=== PATIENT | female | born 1935 | race Caucasian/White ===

== ENCOUNTER → 2017-09-10 14:48 | Outpatient (POV) | payer MEDICARE, SELFPAY | PROVIDERS: Visit Provider Nurse Practitioner Acute Care | DX: Z00.00 Encounter for general adult medical examination without abnormal findings (principal) ==

== ENCOUNTER → 2017-10-22 08:27 | Outpatient (POV) | payer MEDICARE, SELFPAY | PROVIDERS: Visit Provider Nurse Practitioner Acute Care | DX: Z00.00 Encounter for general adult medical examination without abnormal findings (principal) ==

== ENCOUNTER → 2018-01-21 08:47 | Outpatient (POV) | payer MEDICARE, SELFPAY | PROVIDERS: Visit Provider Nurse Practitioner Acute Care | DX: Z00.00 Encounter for general adult medical examination without abnormal findings (principal) ==

== ENCOUNTER → 2019-02-04 13:35 | Outpatient (CLI) | payer MEDICARE, SELFPAY ==
--- NOTE | 2019-02-04 13:42 | MM_ITS ---
MM Dig mamm BI DX w/CAD US breast LT complete Ordering Physician: Los Trevino MD Patient Age: 83 years: Female HISTORY: ITS.REASON: MASSnoted on recent CT No hormones. Noncontributory family history COMPARISON:. Baseline breast study no previous mammogram but there 01/16/2019 CT abdomen which demonstrated mass left breast TECHNIQUE: MLO and cc view both breast along with additional spot CC & MLO view left breast. ...... DIAGNOSTIC MAMMOGRAM WITH SPOT VIEWS LEFT BREAST LEFT BREAST: Spiculated mass density at deep axillary tail left breast. This measures 16 mm times nearly 19 mm height on spot views.. Its mammographic appearance compatible with carcinoma until proven otherwise Subsequent ultrasound appearance compatible with carcinoma until proven otherwise . Also with this patient returns suggesting performing spot views of area labeled Y & Z is seen on cc view. And highlighted by CAD.. I suspect these are summation shadows as it becomes less evident on the MLO view; but would benefit from further evaluation (particularly since area was questioned area 6:00 on subsequent ultrasound as discussed below) . RIGHT BREAST.: Generalized fatty replacement. Vascular calcifications. No areas of significant concern . No areas prominent concern but there are some asymmetric densities which would benefit six-month follow-up when patient returns for the 6 month left mammogram follow-up. . ....ULTRASOUND LEFT BREAST... Including axillary survey Imaging entire breast was performed including axillary survey. . There is a spiculated hypoechoic mass 1:00 outer breast which correlates with the mass seen on mammography. Compatible with carcinoma until proven otherwise. This mass measures up to 19 mm transverse measurement x 16 mm dimension height on ultrasound.. It has slightly lobulated margins in some images with height, greater than width. Recommend Ultrasound-Guided Biopsy of this area labeled BX The product development technician question a second small vague area at 6:00 near nipple. This measures nearly 10 mm X 8.3 mm by ultrasound. Its ultrasound appearance suggest intramammary node but but we will review this again with ultrasound when the patient returns. . 3 Axillary nodes are identified deep axilla but not characterized on today's scan.. These imaged 3 deep axillary nodes imaged appear to be more likely benign; but suggest these be rescanned when the patient returns. -------IMPRESSION: LEFT BREAST: 1. Left breast lesion at 1:00 highly suspect for carcinoma ... Irregular spiculated mass density axillary tail left breast, on mammography & ultrasound. ... Measures up to 19 x 16 mm*Highly suspect for carcinoma..-Recommend Ultrasound Guided biopsy 2. Subtle Vague areas of slight focal density elsewhere at left breast labeled Y & Z most likely summation shadows but benefit from spot views when the patient returns.. (To be performed Prior to biopsy) ; Particularly since ultrasound question vague nodule at 6:00 3.. Ultrasound imaging right axilla demonstrates 3 most more likely benign axillary lymph nodes, but suggest these be again rescanned when the patient returns... (To be performed prior to the ultrasound biopsy) RIGHT BREAST: . No areas of significant significant concern . Mild areas of mild asymmetry. I would suggest a including 6 month follow-up right breast along with left subsequent to the to the patient's likely left lumpectomy surgery BI-RADS Category: 5 Highly Suggestive of Malignancy RECOMMENDED FOLLOW-UP: BIO - BIOPSY RECOMMENDED Ultrasound-guided biopsy suspicious mass LEFT breast labeled X. 1:00 position Prior to biopsy additional imaging warranted: ... Repeat
== END ==
PROVIDERS: PCP Family Medicine; Visit Provider Family Medicine
DX: R22.9 Localized swelling, mass and lump, unspecified (principal); D24.2 Benign neoplasm of left breast
CPT/HCPCS: 76641; 77066

== ENCOUNTER → 2019-02-18 09:27 | Outpatient (CLI) | payer MEDICARE, SELFPAY ==
--- NOTE | 2019-02-18 09:45 | US_ITS ---
US mammotome bx LT, MM clip placement LT, US breast LT complete INDICATION: Abnormal mammogram and abnormal ultrasound of the left breast showing left breast nodule/mass ORDERING PHYSICIAN: Los Trevino MD PATIENT AGE: 83 years COMPARISON: [id number] Prebiopsy ultrasound: Prebiopsy ultrasound performed to confirm presence of the suspicious nodule in the 1:00 region left breast. Appropriate area marked for biopsy. TECHNIQUE: Following, obtaining informed consent and timeout procedure, under aseptic conditions and local anesthesia with 1% buffered lidocaine and deeper anesthesia with lidocaine mixed with epinephrine, mammotomy needle was inserted and deemed to be in appropriate position. Multiple mammotome biopsies were obtained and nonferromagnetic clip placed. The patient tolerated the procedure well without evidence of immediate complication and left the radiology suite in stable condition.. Postbiopsy mammogram: There are postbiopsy changes in the region of the mammographic abnormality in the upper outer aspect of the left breast. Part of the nodule has been removed. The major portion of the nodule remains. The clip is in satisfactory position. In the same setting additional images were performed of the left breast at areas of asymmetry. These regions do not appear to compress out as fibroglandular tissue. Pathology:. 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 Recommend surgical consult
== END ==
PROVIDERS: PCP Family Medicine; Visit Provider Family Medicine
DX: C50.912 Malignant neoplasm of unspecified site of left female breast
CPT/HCPCS: 19083; 76641; 76942; 77065; 88305; 88360; C2618

== ENCOUNTER → 2019-07-01 10:25 | Outpatient (CLI) | payer MEDICARE, SELFPAY ==
--- NOTE | 2019-07-01 10:31 | XR_ITS ---
PROCEDURE: XR LUMBAR SPINE MIN 4V CLINICAL INDICATION: BACK PAIN Low back pain COMPARISON: [id number] CT abdomen pelvis w con from 01/16/2019 FINDINGS: Mild upper lumbar scoliosis convex right. Multilevel degenerative disc disease involves lower thoracic spine and the lumbar spine most severe in the lower thoracic spine and thoracolumbar junction. There is mild wedging of T11 which is old unchanged from 01/16/2019. No acute fracture or dislocation is evident. No lytic or blastic change. Facet arthritic changes are present from L3-S1. IMPRESSION: Degenerative changes with scoliosis with chronic wedging of T11 Dictated by: Wolf Guerrero MD 07/01/2019 11:47 Electronically signed by Wolf Guerrero MD in [facility] 07/01/2019 11:47
== END ==
PROVIDERS: PCP Family Medicine; Visit Provider Family Medicine
DX: M54.9 Dorsalgia, unspecified (principal)
CPT/HCPCS: 72110

== ENCOUNTER 2020-09-23 17:21 | Emergency (ER) | payer MEDICARE, SELFPAY ==
[2020-09-23 17:21] VITALS: BP 151/85; PULSE 60; RESP 20; TEMP 36.5; O2SAT 98; BMI 30.9
--- NOTE | 2020-09-23 17:24 | HMH.EDFALL ---
ED Disposition Clinical Impression: Closed head injury Qualifiers: Encounter type: initial encounter Qualified Code(s): S09.90XA - Unspecified injury of head, initial encounter Altered mental status Qualifiers: Altered mental status type: somnolence Qualified Code(s): R40.0 - Somnolence Disposition: Home, Self-Care Condition on Discharge: Good Instructions: DI for Concussion, DI for Closed Head Injury Referrals: PCP,No [Primary Care Provider] - 3 days - Critical Care Critical Care Time: No Attestation: On , the high probability of a clinically significant, sudden or life threatening deterioration of the following system(s) required my full and direct attention, intervention and personal management. The time I documented below is in addition to time spent performing reported procedures but includes the following listed in this critical care notation. Medical Decision Making - Medical Records Medical records reviewed: Yes: I reviewed the patient's medical records. - George Inquiry Pt receiving controlled substance: No Vital Signs: 09/23/20 17:21 09/23/20 18:17 Temperature 97.7 F Temperature Source Oral Pulse Rate [Left Radial] 60 52 L Respiratory Rate 20 Blood Pressure [Right Arm] 151/85 H 133/98 H Blood Pressure Mean [Right Arm] 107 109 Blood Pressure Source [Right Arm] Automatic Cuff Automatic Cuff Blood Pressure Position [Right Arm] Sitting Sitting 02 Sat by Pulse Oximetry 98 99 Oxygen Delivery Method Room Air Room Air - Lab Data Lab results reviewed: Yes: I reviewed the patient's lab results. Lab Results 09/23/20 17:58: WBC 7.7, RBC 4.78, Hgb 14.5, Hct 46.0, MCV 96.2, MCH 30.3, MCHC 31.5 L, RDW 13.6, Plt Count 168, MPV 8.7, Neut % (Auto) 70.4, Lymph % (Auto) 21.9, [place] % (Auto) 5.8, Eos % (Auto) 1.4, Baso % (Auto) 0.6, Neut # (Auto) 5.4, Lymph # (Auto) 1.7, [place] # (Auto) 0.4, Eos # (Auto) 0.1, Baso # (Auto) 0.0 09/23/20 17:58: PT 11.1, INR 1.00, APTT 20.2 L 09/23/20 18:05: Urine Color Yellow, Urine Appearance Clear, Urine pH 6.0, Ur Specific Prentice 1.015, Urine Protein Negative, Urine Glucose (UA) Negative, Urine Ketones Negative, Urine Blood Trace-i, Urine Nitrate Negative, Urine Bilirubin Negative, Urine Urobilinogen 0.2, Ur Leukocyte Esterase Negative, Urine RBC Occasional, Urine WBC None, Ur Squamous Epith Cells Occasional, Urine Bacteria None 09/23/20 18:05: Urine Opiates Screen Negative, Urine Methadone Screen Negative, Ur Barbituates Screen Negative, Ur Phencyclidine Scrn Negative, Ur Amphetamines Screen Negative, U Benzodiazepines Scrn Negative, Urine Cocaine Screen Negative, U Marijuana (THC) Screen Negative 09/23/20 18:34: Sodium 141, Potassium 4.2, Chloride 110 H, Carbon Dioxide 27, Anion Gap 8.2, BUN 10, Creatinine 0.80, Estimated Creat Clear 54, Estimated GFR 68, Est GFR ( Amer) 83, Glucose 119 H, Calcium 9.2, Total Bilirubin 0.5, Direct Bilirubin 0.1, Conjugated Bilirubin 0.0, Indirect Bilirubin 0.4, Unconjugated Bilirubin 0.4, AST 28, ALT 21, Alkaline Phosphatase 89, Total Protein 7.4, Albumin 3.8 09/23/20 18:34: Ammonia < 9 L 09/23/20 18:34: Plasma/Serum Alcohol < 10 Result diagrams: 09/23/20 17:58 09/23/20 18:34 Orders (Tests/Meds): ORDERS Category Date Time Status CT cervical spine wo con Stat Cat Scan 09/23/20 17:[address] head/brain wo con Stat Cat Scan 09/23/20 17:25 Taken XR wrist RT min 3V Stat Exams 09/23/20 17:25 Taken Free T4 (Free Thyroxine) Stat Lab 09/23/20 18:34 Received Thyroid Panel Stat Lab 09/23/20 18:34 Received - Radiology Data #1 Image(s): Wrist Image Reviewed: Yes I reviewed the patient's radiology results, Yes I reviewed the patient's radiology image No evidence of acute fracture or dislocation, there is a chronic healed impacted fracture of the distal right radial metaphysis and some ulnar variance. There is widening of the scapholunate interval which could represent normal variation or scapholunate ligamentous injury, age-i
--- NOTE | 2020-09-23 17:25 | CT_ITS ---
PROCEDURE: CT CERVICAL SPINE WO CON CLINICAL INDICATION: AMS Neck pain COMPARISON: No exams were available for comparison TECHNIQUE: Axial images obtained with sagittal and coronal reformats. All CT scans at the facility use one or more dose reduction, viz: automated exposure control, ma/kV adjustment per patient size (including targeted exams where dose is matched to indication, i.e. head), or iterative reconstruction technique. Axial spiral CT scanning performed of the cervical spine beginning at the base of the skull and continuing to the upper T-spine. 3-D multiplanar reconstruction with 3-D manipulation of volumetric data set in image rendering was completed by the radiologist and/or technologist with the supervision of the radiologist on independent workstation. FINDINGS: There is normal alignment. No acute fracture or dislocation is evident. Degenerative disc disease is present at C5-C6 with 2 mm retrolisthesis of C5. Multilevel facet arthrosis with mild left foraminal narrowing at C3-C4 and C4-C5 and mild right foraminal narrowing at C5-C6. Scattered small nodes are present in the neck. There is mild cervical curvature convex right. Lung apices are clear. IMPRESSION: Cervical spondylosis as described above. No acute fracture. Dictated by: Wolf Guerrero MD 09/24/2020 06:35 Wolf Guerrero MD in [facility] 09/24/2020 06:35
--- NOTE | 2020-09-23 17:25 | XR_ITS ---
PROCEDURE: XR WRIST RT MIN 3V CLINICAL INDICATION: AMS Laceration, injury with pain COMPARISON: No exams were available for comparison FINDINGS: There is an old distal radial fracture. There is mild prominence of the scapholunate space. No acute fracture or dislocation. There is a mild ulnar positive variant with mild foreshortening of the distal radius. 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 Other findings:None. IMPRESSION: No acute fracture. 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 Please see above for details Dictated by: Wolf Guerrero MD 09/24/2020 05:54 Wolf Guerrero MD in [facility] 09/24/2020 05:54
--- NOTE | 2020-09-23 17:25 | CT_ITS ---
PROCEDURE: CT HEAD/BRAIN WO CON CLINICAL INDICATION: AMS Altered mental status, altered level of consciousness, confusion, disorientation COMPARISON: CT HDWO CT HEAD W/O CONTRAST from 10/06/2013 TECHNIQUE: Axial images obtained. All CT scans at the facility use one or more dose reduction, viz: automated exposure control, ma/kV adjustment per patient size (including targeted exams where dose is matched to indication, i.e. head), or iterative reconstruction technique. FINDINGS: No midline shift, mass effect, intracranial hemorrhage, hydrocephalus, or extra-axial fluid collection is evident. There is generalized atrophy with hypoattenuation of the periventricular white matter consistent with microangiopathic changes. The calvarium has an unremarkable appearance. No mastoid effusion. No sinus air-fluid level. IMPRESSION: No acute intracranial finding Dictated by: Wolf Guerrero MD 09/24/2020 06:29 Wofl Guerrero MD in [facility] 09/24/2020 06:29
--- NOTE | 2020-09-23 17:48 | PC.NURSE ---
Pt returned from rad.
--- NOTE | 2020-09-23 17:53 | PC.NURSE ---
CT Reports received
[2020-09-23 18:11] LABS: Basophils % 0.6 % (0.1-2.0); Eosinophils # 0.1 K/mm3 (0.0-0.4); Eosinophils % 1.4 % (0.1-12.0); Hemoglobin 14.5 g/dL (12.2-16.2); Lymphocytes # 1.7 K/mm3 (0.7-4.5); Lymphocytes % 21.9 % (10-50); Mean Corpuscular HGB Conc 31.5 g/dL (31.8-35.4); Mean Corpuscular Hemoglobin 30.3 pg (27.0-31.2); Mean Corpuscular Volume 96.2 fl (81-99); Mean Platelet Volume 8.7 fl (7.4-10.4); Monocytes # 0.4 K/mm3 (0.1-1.0); Monocytes % 5.8 % (1.7-9.3); Neutrophils # 5.4 K/mm3 (1.8-7.8); Neutrophils % 70.4 % (37.0-80.0); Platelet Count 168 K/mm3 (142-424); Red Blood Count 4.78 M/mm3 (4.20-5.40); Red Cell Distribution Width 13.6 % (11.5-17.5); White Blood Count 7.7 K/mm3 (4.8-10.8)
[2020-09-23 18:16] LABS: Microscopic, Urine URINE MICROSCOPIC (MICROSCOPIC)
[2020-09-23 18:17] VITALS: BP 133/98; PULSE 52; O2SAT 99
[2020-09-23 18:17] LABS: Appearance,Urine CLEAR (Clear); Bilirubin,Urine Negative (Negative); Blood, Urine TRACE-I (Negative); Color,Urine YELLOW (Yellow); Glucose,Urine (UA) Negative (Negative); Ketones,Urine Negative (Negative); Leukocyte Esterase,Urine Negative (Negative); Nitrate,Urine Negative (Negative); Protein,Urine Negative (Negative); Specific Gravity, Urine 1.015 (1.005-1.030); Urobilinogen,Urine 0.2 EU/dl (0.2)
[2020-09-23 18:19] LABS: Activated Partial Thrombo Time 20.2 seconds (23.6-34.0); Prothrombin Time 11.1 seconds (9.4-11.8)
[2020-09-23 18:25] LABS: RBC,Urine Occasional #/hpf (0-3); Squamous Epithelial Cell,Urine Occasional #/hpf (0-5)
[2020-09-23 18:30] LABS: Barbiturates Screen,Urine Negative ng/ml (<200); Benzodiazepines Screen,Urine Negative ng/ml (<200)
[2020-09-23 18:31] LABS: Amphetamine/Metha Screen,Urine Negative ng/ml (<1000)
[2020-09-23 18:32] LABS: Cannabinoid Screen,Urine Negative ng/ml (<50); Methadone Screen,Urine Negative ng/ml (<300)
[2020-09-23 18:33] LABS: Cocaine Screen,Urine Negative ng/ml (<300); Opiate Screen,Urine Negative ng/ml (<300)
[2020-09-23 18:34] LABS: Phencyclidine Screen,Urine Negative ng/ml (<25)
--- NOTE | 2020-09-23 18:37 | PC.NURSE ---
v/s delayed due to trying to collect labs.
[2020-09-23 18:52] LABS: Chloride 110 mmol/L (98-107); Potassium 4.2 mmoL/L (3.5-5.1); Sodium 141 mmol/L (136-145)
[2020-09-23 18:55] LABS: Alanine Aminotransferase 21 U/L (12-78); Albumin Level 3.8 g/dl (3.5-5.0); Alkaline Phosphatase 89 U/L (38-126); Anion Gap 8.2 mEq/L (5-15); Aspartate Amino Transferase 28 U/L (14-36); Bilirubin,Direct 0.1 mg/dl (0.0-0.4); Bilirubin,Indirect 0.4 mg/dL (0.0-0.9); Bilirubin,Total 0.5 mg/dl (0.2-1.3); Bilirubin,Unconjugated 0.4 mg/dL (0.0-1.1); Blood Urea Nitrogen 10 mg/dl (7-17); Calcium 9.2 mg/dl (8.4-10.2); Carbon Dioxide 27 mmol/L (22.0-30.0); Creatinine Clearance Estimated 54 mL/min (50-200); Estimated Glomerular Filt Rate 68 ml/min (>60); GFR (African American) 83 ML/MIN (>60); Glucose 119 mg/dl (74-100); Total Protein,Serum 7.4 g/dl (6.3-8.2)
[2020-09-23 18:56] LABS: Ammonia < 9 umol/L (9-30)
[2020-09-23 18:57] LABS: Ethyl Alcohol < 10 mg/dl (0-10)
[2020-09-23 19:13] VITALS: BP 117/82; PULSE 73; RESP 15; TEMP 36.8; O2SAT 98
[2020-09-23 19:16] LABS: Free T4 (Free Thyroxine) 0.93 ng/dl (0.78-2.19)
[2020-09-23 19:17] LABS: Free Thyroxine Index 2.6 ug/dL (5.93-13.13); T4 (Thyroxine) 7.2 ug/dl (5.53-11.0); Triiodothryronine (T3) Uptake 36 % (23.5-40.5)
[2020-09-23 19:31] LABS: Thyroid Stimulating Hormone 1.21 uIU/mL (0.465-4.68)
== END 2020-09-23 19:44 | disposition home or self-care (01) ==
PROVIDERS: Emergency Provider Emergency Medicine
DX: S09.90XA Unspecified injury of head, initial encounter (principal); S61.511A Laceration without foreign body of right wrist, initial encounter; W18.39XA Other fall on same level, initial encounter; Y92.019 Unspecified place in single-family (private) house as the place of occurrence of the external cause; Z85.3 Personal history of malignant neoplasm of breast
CPT/HCPCS: 29125; 70450; 72125; 73110; 80048; 80076; 80305; 81001; 82140; 84436; 84439; 84443; 84479; 85025; 85610; 85730; 99283

== ENCOUNTER 2020-09-24 13:19 | Observation (INO) | payer MEDICARE, SELFPAY ==
[2020-09-24] VITALS (9 sets, daily range): BP systolic 119–175; BP diastolic 75–118; PULSE 82–94; RESP 16–18; TEMP 36.4–36.9; O2SAT 91–99; BMI 23.1; BMI 23.4
--- NOTE | 2020-09-24 13:26 | ECG_ITS ---
APPROVED REPORT Exam: Resting ECG HR:82 bpm ECG Measurements Heart Rate 82 AXES AZ 118 P 43 QRSd 72 QRS -39 QT 358 T 18 QTc 418 Conclusion Normal sinus rhythm Possible Left atrial enlargement Left axis deviation Left ventricular hypertrophy Nonspecific ST and T wave abnormality Abnormal ECG Electronically signed by : Los Hoskins, 09/25/2020 07:37:41
--- NOTE | 2020-09-24 13:27 | HMH.EDGENADL ---
ED Disposition Clinical Impression: Elevated blood pressure reading Altered mental status Qualifiers: Altered mental status type: disorientation Qualified Code(s): R41.0 - Disorientation, unspecified Disposition: Admitted as Observation Condition on Discharge: Good - Critical Care Critical Care Time: No Attestation: On , the high probability of a clinically significant, sudden or life threatening deterioration of the following system(s) required my full and direct attention, intervention and personal management. The time I documented below is in addition to time spent performing reported procedures but includes the following listed in this critical care notation. Medical Decision Making - Medical Records Medical records reviewed: Yes: I reviewed the patient's medical records. MR Swanson: Reviewed emergency department visit from yesterday at this facility. Reviewed reports of CT head and CT C-spine and lab results all of which were unremarkable. X-ray of right wrist showed possible old fracture, she denies pain. She has on her wrist brace. - George Inquiry Pt receiving controlled substance: No Vital Signs: 09/24/20 13:20 09/24/20 14:32 09/24/20 16:07 Temperature 98.0 F Temperature Source Oral Pulse Rate [Right Radial] 92 H 92 H 84 Respiratory Rate 18 18 18 Blood Pressure [Right Arm] 165/104 H 157/100 H 175/118 H Blood Pressure Mean [Right Arm] 124 119 137 Blood Pressure Source [Right Arm] Automatic Cuff Automatic Cuff Blood Pressure Position [Right Arm] Sitting Sitting Sitting 02 Sat by Pulse Oximetry 97 96 96 Oxygen Delivery Method Room Air Room Air Room Air 09/24/20 16:30 Temperature Temperature Source Pulse Rate [Right Radial] 91 H Respiratory Rate 18 Blood Pressure [Right Arm] 164/98 H Blood Pressure Mean [Right Arm] 120 Blood Pressure Source [Right Arm] Automatic Cuff Blood Pressure Position [Right Arm] Sitting 02 Sat by Pulse Oximetry 91 L Oxygen Delivery Method Room Air - Lab Data Lab results reviewed: Yes: I reviewed the patient's lab results. Lab Results 09/24/20 13:25: WBC 8.2, RBC 5.20, Hgb 15.5, Hct 49.7 H, MCV 95.6, MCH 29.7, MCHC 31.1 L, RDW 13.5, Plt Count 210, MPV 8.4, Neut % (Auto) 60.3, Lymph % (Auto) 33.3, [place] % (Auto) 5.2, Eos % (Auto) 0.8, Baso % (Auto) 0.5, Neut # (Auto) 4.9, Lymph # (Auto) 2.7, Becker # (Auto) 0.4, Eos # (Auto) 0.1, Baso # (Auto) 0.0 09/24/20 13:25: Sodium 143, Potassium 4.1, Chloride 107, Carbon Dioxide 28, Anion Gap 12.1, BUN 13 D, Creatinine 1.00 D, Estimated Creat Clear 40, Estimated GFR 53 L, Est GFR ( Amer) 64 D, Glucose 121 H, Calcium 10.0, Total Bilirubin 0.7, AST 35, ALT 27 D, Alkaline Phosphatase 108, Troponin I < 0.01, Total Protein 9.0 H, Albumin 4.8 D, Globulin 4.2 H, Albumin/Globulin Ratio 1.1 09/24/20 13:38: Carboxyhemoglobin 2.1 Result diagrams: 09/24/20 13:25 09/24/20 13:25 Orders (Tests/Meds): ED MEDICATIONS Generic Name Dose Route Start Last Admin Trade Name Freq PRN Reason Stop Dose Admin Acetaminophen 650 mg 09/24/20 16:52 Acetaminophen 325mg Tab PO 10/24/20 16:51 Q4HP PRN As Needed for Fever or Pain Sodium Chloride 1,000 mls @ 50 mls/hr 09/24/20 16:52 Sod Chlor 0.9% 1000ml Bag IV 10/24/20 16:51 .Q20H GUALBERTO Lisinopril 5 mg 09/24/20 16:52 09/24/20 16:59 Lisinopril 5mg Tablet PO 10/24/20 16:51 5 mg DAILY GUALBERTO Administration Ondansetron HCl 4 mg 09/24/20 16:52 Ondansetron 4mg/2ml Vial IV 10/24/20 16:51 Q8HP PRN Nausea Sodium Chloride 10 ml 09/24/20 16:52 Sodium Chloride 0.9% 10ml Flush Syringe IV 10/24/20 16:51 NEEDED PRN Maintain IV Site Discontinued Medications Generic Name Dose Route Start Last Admin Trade Name Freq PRN Reason Stop Dose Admin Acetaminophen 1,000 mg 09/24/20 16:11 09/24/20 16:16 Acetaminophen 500mg Tab PO 09/24/20 16:12 1,000 mg ONCE ONE Administration Sodium Chloride 1,000 mls @ 999 mls/hr 09/24
[2020-09-24 13:44] LABS: Chloride 107 mmol/L (98-107); Sodium 143 mmol/L (136-145)
[2020-09-24 13:45] LABS: Basophils % 0.5 % (0.1-2.0); Eosinophils # 0.1 K/mm3 (0.0-0.4); Eosinophils % 0.8 % (0.1-12.0); Hematocrit 49.7 % (37.0-47.0); Hemoglobin 15.5 g/dL (12.2-16.2); Lymphocytes # 2.7 K/mm3 (0.7-4.5); Lymphocytes % 33.3 % (10-50); Mean Corpuscular HGB Conc 31.1 g/dL (31.8-35.4); Mean Corpuscular Hemoglobin 29.7 pg (27.0-31.2); Mean Corpuscular Volume 95.6 fl (81-99); Mean Platelet Volume 8.4 fl (7.4-10.4); Monocytes # 0.4 K/mm3 (0.1-1.0); Monocytes % 5.2 % (1.7-9.3); Neutrophils # 4.9 K/mm3 (1.8-7.8); Neutrophils % 60.3 % (37.0-80.0); Platelet Count 210 K/mm3 (142-424); Potassium 4.1 mmoL/L (3.5-5.1); Red Cell Distribution Width 13.5 % (11.5-17.5); White Blood Count 8.2 K/mm3 (4.8-10.8)
[2020-09-24 13:47] LABS: Alanine Aminotransferase 27 U/L (12-78); Albumin Level 4.8 g/dl (3.5-5.0); Albumin/Globulin Ratio 1.1 (1.1-1.8); Alkaline Phosphatase 108 U/L (38-126); Anion Gap 12.1 mEq/L (5-15); Aspartate Amino Transferase 35 U/L (14-36); Bilirubin,Total 0.7 mg/dl (0.2-1.3); Blood Urea Nitrogen 13 mg/dl (7-17); Carbon Dioxide 28 mmol/L (22.0-30.0); Creatinine Clearance Estimated 40 mL/min (50-200); Estimated Glomerular Filt Rate 53 ml/min (>60); GFR (African American) 64 ML/MIN (>60); Globulin 4.2 g/dL (1.3-3.2)
[2020-09-24 13:48] LABS: Glucose 121 mg/dl (74-100)
--- NOTE | 2020-09-24 13:48 | PC.NURSE ---
pt son at . Son states pt was disoriented t/o the night lastnight and some this morning (states this per his sister who stayed with pt lastnight). Pt son reports pt lives alone, but her grandson lives there some. Pt son also reports he does not believe pt has eaten or drank anything in 2-3 days. Son reports pt has been c/o nausea and stomach pain for approx 6 months, states pt has seen her pcp about his pain but states they don't do anything . Pt son states pt was out feeding the cows 3 days ago , states we need to figure out whats wrong with her . notified ER of this conversation.
--- NOTE | 2020-09-24 13:49 | PC.NURSE ---
notified RT of new orders on pt.
--- NOTE | 2020-09-24 13:50 | XR_ITS ---
PROCEDURE: XR CHEST PORTABLE CLINICAL HISTORY: Chest pain Altered mental status, altered level of consciousness, confusion, disorientation COMPARISON: CR CXR CHEST(2 VIEWS-NOT PORTABLE) from 09/25/2012 FINDINGS: The cardiomediastinal silhouette and pulmonary vascularity are within normal limits. The lungs are clear without infiltrates, suspicious nodules, or pleural effusions. Mild thoracolumbar curvature convex right IMPRESSION: No acute findings. Dictated by: Wolf Guerrero MD 09/24/2020 14:20 Wolf Guerrero MD in [facility] 09/24/2020 14:20
--- NOTE | 2020-09-24 13:51 | PC.NURSE ---
notified rad of new order on pt
[2020-09-24 13:59] LABS: Troponin I < 0.01 ng/ml (0.00-0.034)
--- NOTE | 2020-09-24 13:59 | PC.NURSE ---
radiology at for portable xray
[2020-09-24 14:01] LABS: Carboxyhemoglobin 2.1 (0.0-5.0)
--- NOTE | 2020-09-24 14:32 | PC.NURSE ---
TYE CARR speaking with Dr. Trevino
--- NOTE | 2020-09-24 16:12 | PC.NURSE ---
notified datawarehouse developer of admission.
--- NOTE | 2020-09-24 16:35 | PC.NURSE ---
called for meal tray for pt
--- NOTE | 2020-09-24 16:35 | PC.NURSE ---
ER at discussing POC with pt and son
--- NOTE | 2020-09-24 16:55 | PC.NURSE ---
notified second floor pt is ready for admission, spoke with CHRIS Morris
--- NOTE | 2020-09-24 17:15 | PC.NURSE ---
report given to DebiRN
--- NOTE | 2020-09-24 17:34 | PC.NURSE ---
Pt arrived to the floor at this time
--- NOTE | 2020-09-24 19:43 | PC.WOUNDNOTE ---
Wound Location: SKIN TEAR NOTED TO R WRIST Length: 8 Width: 3 Depth: Undermining Y/N: N Tunneling cm: Granulation %: Slough/necrotic tissue %: Inflammation/swelling Y/N: Y Pain and/or tenderness Y/N: Y Exudate: Serosanguinous Sanguinous Serosanguinous Seropurulent Purulent Color: Clear Juliette Cloudy/milky [place] Red Green Yellow [place] Blue Consistency: Thick Thin Amount: None Scant Small Moderate Large Odor Y/N: N
--- NOTE | 2020-09-24 20:07 | P.CONPHA_ITS ---
[facility] VTE Monitoring - Patient Demographics Admission date: 09/24/20 Report Date: 09/24/20 Time: 20:07 Allergies/Adverse Reactions: Patient Allergies No Known Allergies Allergy (Verified 03/21/19 10:39) Height: 1.63 m Weight: 62.051 kg Patient Problems: Current Active Problems Altered mental status (Acute) Elevated blood pressure reading (Acute) - VTE Risk Labs: VTE Related Lab Results Hgb 15.5 g/dL (12.2-16.2) 09/24/20 13:25 Hct 49.7 % (37.0-47.0) H 09/24/20 13:25 Plt Count 210 K/mm3 (142-424) 09/24/20 13:25 BUN 13 mg/dl (7-17) D 09/24/20 13:25 Creatinine 1.00 mg/dl (0.52-1.04) D 09/24/20 13:25 Estimated Creat Clear 40 mL/min (50-200) 09/24/20 13:25 Was VTE Risk Assessment Performed: Yes VTE Score: 3 VTE Risk Level: Low Risk Clinical Trial Participant: No - Prophylaxis VTE Prophylaxis Ordered?: Yes Types of VTE Prophylaxis: TEDS Knee High
[2020-09-25 04:00] VITALS: BP 128/81; PULSE 73; RESP 18; TEMP 36.4; O2SAT 94
[2020-09-25 04:51] VITALS: BMI 24.0
--- NOTE | 2020-09-25 06:00 | PC.NURSE ---
Pt has been pleasant and cooperative this shift. Pt is mostly A&O, but occasionally confused. Pt complained of pain X1 this shift and was medicated with Tylenol per MAR with favorable results. Pt is on room air with sats. >90%. Lungs CTA. No edema noted. Skin tear noted to RT forearm, dressing is C/D/I. Pt ambulates with stand-by assistance and uses the toilet to void clear, yellow urine without issue. No BM this shift. 20 G peripheral IV in the LT AC is patent and infusing NS @ 50 ML/HR. VSS. Call light within reach. Will continue to monitor.
[2020-09-25 08:00] VITALS: BP 122/77; PULSE 80; RESP 16; TEMP 36.5; O2SAT 99
--- NOTE | 2020-09-25 08:25 | HMH.HP ---
*Admission Date: 09/24/20 *History of present illness: 84-year-old female with past history of breast cancer presented to the emergency department for the second time in a little over 24 hours with complaints of altered mental status. Some history is obtained from the patient although memory limits information. Most history is obtained from the patient's daughter, Tammy. Patient's daughter reports on the morning of September 23 patient seemed disoriented . She exhibited some strange behaviors such as mistaking the door on a gun safe to the door to her home. Patient also seemed restless and her daughter notes she was moaning and groaning a lot. At around 2 PM that same day patient fell which resulted in a skin tear to the right forearm and is believe the patient also struck her head. The fall was unwitnessed. It was at this point the patient was brought to the emergency department the first time. Patient underwent evaluation. There was no significant neurologic deficit. Patient was discharged back to home. Apparently that evening patient was quite agitated again. With great effort her daughter was able to calm her and get her to go to sleep. The patient slept on the couch overnight. Yesterday morning she awoke and seemed to be neurologically improved but as the day progressed patient's confusion seemed to return and she was brought back to the emergency department. Patient underwent repeat labs which were unremarkable. Patient was admitted for further observation. In interviewing the patient she denies headache, visual disturbance, photophobia, phonophobia. She reports nausea which is not new. She is oriented to person, place, month. Since admission patient has not exhibited any abnormal behaviors but has remained disoriented [facility] History I have reviewed the patient's past medical history: Yes Medical History: Reports:: Cancer (BREAST) Denies:: Diabetes Mellitus Type 1, Diabetes Mellitus Type 2, MRSA *Have you ever received a pneumonia vaccine?: No *Have you received a flu vaccine this season?: Yes Other Surgeries: Yes: Tubal Ligation Amputation: No Fractures: Yes (right wrist) - *Social History Last grade of school completed: High school graduate Smoking Status: Never smoker Alcohol Intake: never Substance Use Type: denies use *Occupational Status:: retired Housing: house Household Members: family *Travel in the last 8 weeks: None Family Hx:: Cancer, Heart Attack, Stroke Review of Systems - Constitutional Reports fatigue, Denies anorexia, Denies body ache(s), Denies lack of energy - Eyes Denies blind spots, Denies blurry vision - ENT Denies abnormal hearing, Denies difficulty swallowing - *Cardiovascular Denies chest pain, Denies chest pain at rest, Denies shortness of breath with activity - *Respiratory Denies change in phlegm color, Denies chest congestion, Denies cough - *Gastrointestinal Reports belching, Reports bloating, Denies abdominal pain, Denies loose stools, Denies heartburn - *Musculoskeletal Reports abnormal walking, Denies joint pain, Denies decreased muscle mass - Integumentary/Breasts Denies hair loss - *Neurologic Denies headache(s), Denies numbness, Denies weakness Meds Home Medications Medication Instructions Recorded Confirmed Type Anastrozole 1 mg PO DAILY 09/24/20 09/24/20 History Allergies Allergy/AdvReac Type Severity Reaction Status Date / Time No Known Allergies Allergy Verified 03/21/19 10:39 Exam Vital signs and Labs for Last 24 Hours: Temp Pulse Resp BP Pulse Ox 97.6 F 73 18 128/81 94 L 09/25/20 04:00 09/25/20 04:00 09/25/20 04:00 09/25/20 04:00 09/25/20 04:00 Laboratory Results - last 24 hr 09/24/20 13:25: WBC 8.2, RBC 5.20, Hgb 15.5, Hct 49.7 H, MCV 95.6, MCH 29.7, MCHC 31.1 L, RDW 13.5, Plt Count 210, MPV 8.4, Neut % (Auto) 60.3, Lymph % (Auto) 33.3, Sequoyah % (Auto) 5.2, Eos % (Auto) 0.8, Baso % (Auto) 0.5, Neut # (Auto) 4.9, Lymph
--- NOTE | 2020-09-25 09:06 | HMH.PHAINT ---
MEDICATION RECONCILIATION COMPLETED ON PATIENT USING EXTERNAL FILL HISTORY FROM PHARMACY AND PATIENT'S OWN RX BOTTLES. -LAKSHMI PEREYRAD
[2020-09-25 09:54] LABS: Erythrocyte Sedimentation Rate 15 mm/hr (0-30)
[2020-09-25 11:06] LABS: Vitamin B12 227 pg/mL (239-931)
--- NOTE | 2020-09-25 15:15 | PC.NURSE ---
Pt alert and oriented to person place and situation but not time. Has been up and take shower and walked in room this shift with SBA. CB in reach. Have encouraged po water. Urine sent for cx. S1, S2, lungs cta, and bs x 4. No c/o at this time. Pt up to chair currently.
[2020-09-25 15:21] VITALS: BP 130/86; PULSE 82; RESP 17; TEMP 36.6; O2SAT 97
[2020-09-25 19:31] VITALS: BP 127/77; PULSE 88; RESP 16; TEMP 36.6; O2SAT 97
[2020-09-26 04:00] VITALS: BP 142/84; PULSE 77; RESP 16; TEMP 36.7; O2SAT 97
--- NOTE | 2020-09-26 04:54 | PC.NURSE ---
pt is alert to self, place. and situation. when asked the year pt stated 2083, wait thats not right. no complaints voiced. standby assist when ambulating. pt states left lateral side of lower leg was tender and body aching. she said I feel like im starting to feel the effects of the fall now. iv patent. urine is clear and straw color. no odor. nonskids on. call light in reach and using appropriately. vss. will continue to monitor
[2020-09-26 05:02] VITALS: BMI 23.7
[2020-09-26 07:59] VITALS: BP 160/94; PULSE 72; RESP 18; TEMP 36.7; O2SAT 97
--- NOTE | 2020-09-26 08:07 | HMH.DCSUM ---
General - General Admission date:: 09/24/20 Discharge date: 09/26/20 HPI HPI: 84-year-old female with past history of breast cancer presented to the emergency department for the second time in a little over 24 hours with complaints of altered mental status. Some history is obtained from the patient although memory limits information. Most history is obtained from the patient's daughter, Tammy. Patient's daughter reports on the morning of September 23 patient seemed disoriented . She exhibited some strange behaviors such as mistaking the door on a gun safe to the door to her home. Patient also seemed restless and her daughter notes she was moaning and groaning a lot. At around 2 PM that same day patient fell which resulted in a skin tear to the right forearm and is believe the patient also struck her head. The fall was unwitnessed. It was at this point the patient was brought to the emergency department the first time. Patient underwent evaluation. There was no significant neurologic deficit. Patient was discharged back to home. Apparently that evening patient was quite agitated again. With great effort her daughter was able to calm her and get her to go to sleep. The patient slept on the couch overnight. Yesterday morning she awoke and seemed to be neurologically improved but as the day progressed patient's confusion seemed to return and she was brought back to the emergency department. Patient underwent repeat labs which were unremarkable. Patient was admitted for further observation. In interviewing the patient she denies headache, visual disturbance, photophobia, phonophobia. She reports nausea which is not new. She is oriented to person, place, month. Since admission patient has not exhibited any abnormal behaviors but has remained disoriented Hospital Course Hospital Course: Patient was admitted for observation. No abnormal behaviors were witnessed during hospitalization. On initial hospitalization patient was oriented to person and place but struggled with time. Specifically on the first day of admission day, date, year or incorrect. Patient was able to ambulate independently and bathe independently. By the morning of September 26 patient was completely reoriented and recognized that she had not known answers to some of the previous orientation questions. Additional labs revealed vitamin B12 deficiency and patient was given B12 injection prior to discharge. She will start oral B12 supplementation but will also follow-up in the office for vitamin B12 injections when the weather permits. Patient was discharged home on the morning of the 14th Objective Vital signs: Temp Pulse Resp BP Pulse Ox 98.1 F 72 18 160/94 H 97 09/26/20 07:59 09/26/20 07:59 09/26/20 07:59 09/26/20 07:59 09/26/20 07:59 no acute distress - *Routine Respiratory Exam Present: CTA bilaterally - *Routine Cardiovascular Exam Present: RRR - *Routine Skin Exam Present: warm, wounds (Skin tear of right distal forearm/wrist), rash - *Routine Neurological Exam Present: alert, oriented X3, CN II-XII intact, moving all extremities, normal speech. Absent: sensory deficit, motor deficit, pronator drift, facial asymmetry Results Labs on day of discharge: Labs from last 24 hours 09/25/20 09/25/20 09:20 09:20 ESR 15 Vitamin B12 227 L Folate 15.10 Preliminary micro results at discharge 09/25/20 12:00 Urine Culture - Preliminary Urine,Clean Catch DS: Diagnosis - Discharge Diagnosis (1) Concussion Status: Suspected (2) Delirium Status: Resolved (3) Cognitive impairment Status: Acute (4) History of breast cancer Status: Chronic (5) Fall at home Status: Acute (6) Skin tear of forearm without complication Status: Acute Discharge Plan - Patient Discharge Instructions ACTIVITY: Continue current activity DIET: continue same diet Patient Instructions: DI
[2020-10-01 17:36] LABS: Vitamin B1 110.2 nmol/L (66.5-200.0)
== END 2020-09-26 10:00 | disposition home or self-care (01) ==
LOC: ER 13:49 → 2ND 16:38
PROVIDERS: Admitting Provider Family Medicine; Emergency Provider Emergency Medicine; PCP Family Medicine; Visit Provider Family Medicine
DX: S06.0X0A Concussion without loss of consciousness, initial encounter (principal); R41.81 Age-related cognitive decline; S51.819A Laceration without foreign body of unspecified forearm, initial encounter; Z85.3 Personal history of malignant neoplasm of breast; Z79.899 Other long term (current) drug therapy; W19.XXXA Unspecified fall, initial encounter; Y92.009 Unspecified place in unspecified non-institutional (private) residence as the place of occurrence of the external cause
CPT/HCPCS: 71045; 80053; 82375; 82607; 82746; 84425; 84484; 85025; 85651; 87086; 93005; 96365; 96375; 99284; G0378; J2405; U0003

== ENCOUNTER → 2021-09-30 14:15 | Outpatient (CLI) | payer MEDICARE, SELFPAY ==
--- NOTE | 2021-09-30 | CA_ITS ---
FINAL REPORT TECHNIQUE: Color Doppler, duplex Doppler and compression sonography of the left lower extremity deep venous systems was performed. CLINICAL HISTORY: Patient states her left leg began hurting 3 days ago, pain worse with walking. She denies trauma. Patient currently has breast cancer. FINDINGS: There is no evidence of deep venous thrombosis from the level of the groin to the calf. The veins are patent and compressible. IMPRESSION: No evidence of deep venous thrombosis left lower extremity. Reviewed, Interpreted and Dictated by Rubens Saleh III, MD Transcribed by Moni Jennings Authenticated by Rubens Saleh III, MD on 09/30/2021 03:38:37 PM [facility]
== END ==
PROVIDERS: PCP Family Medicine; Visit Provider Nurse Practitioner Family
DX: M79.605 Pain in left leg (principal)
CPT/HCPCS: 93971

== ENCOUNTER → 2022-03-02 13:00 | Outpatient (CLI) | payer MEDICARE, SELFPAY ==
--- NOTE | 2022-03-02 13:04 | XR_ITS ---
FINAL REPORT CLINICAL HISTORY: RT HIP PAIN COMPARISON: 07/01/2019 FINDINGS: LUMBAR SPINE. Five views demonstrate no acute fracture. Moderate degenerative changes are present. There is multilevel facet arthropathy. Note is made of dextroscoliosis. The alignment is otherwise normal. IMPRESSION: Multilevel degenerative changes without acute process Reviewed, Interpreted and Dictated by Rubens Saleh III, MD Transcribed by Maile Brantley Authenticated and [facility]
--- NOTE | 2022-03-02 13:04 | XR_ITS ---
FINAL REPORT CLINICAL HISTORY: RT HIP PAIN FINDINGS: RIGHT HIP Three views were obtained. There is no acute fracture or dislocation. Mild degenerative changes are present. Phleboliths are seen in the pelvis. No acute soft tissue abnormality is identified. IMPRESSION: No acute process. Reviewed, Interpreted and Dictated by Rubens Saleh III, MD Transcribed by Maile Brantley Authenticated and [facility]
== END ==
PROVIDERS: PCP Family Medicine; Visit Provider Family Medicine
DX: M25.551 Pain in right hip (principal); M54.50 Low back pain, unspecified
CPT/HCPCS: 72110; 73502

== ENCOUNTER 2022-11-11 19:51 | Emergency (ER) | payer MEDICARE, SELFPAY ==
[2022-11-11] VITALS (7 sets, daily range): BP systolic 135–159; BP diastolic 87–101; PULSE 78–94; RESP 18–20; TEMP 36.5–36.8; O2SAT 93–98; BMI 23.1
--- NOTE | 2022-11-11 20:43 | HMH.EDURI ---
Discharge Plan Disposition Patient Disposition: Home, Self-Care Prescriptions Prescriptions: New ondansetron HCl 4 mg Tablet 4 mg PO Q8H PRN (Reason: Nausea) Qty: 20 0RF levofloxacin 500 mg tablet 500 mg PO DIRECTED Qty: 5 0RF No Action clobetasol 0.05 % cream See Rx Instructions .ROUTE .COMPLEX Qty: 15 0RF Dose Instruction: APPLY CREAM TOPICALLY TWICE DAILY Rx Instructions: APPLY CREAM TOPICALLY TWICE DAILY anastrozole 1 MG tablet 1 mg PO DAILY cyanocobalamin (vitamin B-12) 1,000 MCG tablet 1,000 mcg PO DAILY Qty: 100 0RF Referrals Follow up/Referrals: Erik Naidu [Primary Care Provider] - See instructions Clinical Impressions Clinical Impression: Bronchitis Instructions Patient Instructions: DI for Acute Bronchitis Discharge ED Provider: Raji (ED)Timbo URI/Sore Throat HPI General Chief Complaint: Dizziness Stated Complaint: dizziness,chills,dry mouth Time Seen by Provider: 11/11/22 20:10 Mode of Arrival: Wheelchair Source of Information: Patient, Relative and Medical Record Limitations: No Limitations Description of Symptoms (Recalled from ER Triage Doc. by RN): 86 F presents with new onset of body aches, cough, fatigue, yellow phlem, and dizzy spells. She reports she hasn't eaten very much today, and was out doing a bunch of things yesterday in the rain. A/O x4, GCS 15, NAD on arrival History of Present Illness HPI Narrative: pt presents with c/o of not feeling well and nausea -pt does report cough and yellow sputum MD Complaint: cough Onset (ago): day(s) Duration: intermittent Severity: moderate Able to tolerate fluids by mouth: Yes Associated symptoms: nausea Treatments prior to arrival: none Related Data Home Medications Medication Instructions Recorded Confirmed anastrozole 1 mg tablet 1 mg PO DAILY CANCER 09/24/20 09/24/20 Previous Rx's Medication Instructions Recorded cyanocobalamin (vitamin B-12) 1,000 mcg PO DAILY #100 tabs 09/26/20 1,000 mcg tablet clobetasol 0.05 % topical cream See Rx Instructions .Route 09/21/22 .COMPLEX #15 grams levofloxacin 500 mg tablet 500 mg PO DIRECTED #5 tabs 11/11/22 ondansetron HCl 4 mg tablet 4 mg PO Q8H PRN Nausea #20 tabs 11/11/22 Allergies Allergy/AdvReac Type Severity Reaction Status Date / Time No Known Allergies Allergy Verified 09/12/21 08:37 [facility] Disclaimer: The information contained in this section may have been updated after the patient was seen, as this information can be updated by other users. Social History Smoking Status: Never smoker alcohol intake: never substance use type: denies use current occupational status: retired Travel in the last 8 weeks: None household members: family housing: house current occupational exposures/hazards: No caffeine: Yes ROS Obtained: Yes All systems reviewed & no additional complaints except as documented Physical Exam General General appearance: alert Head Head exam: normocephalic Eye Eye exam: Present PERRL and EOMI ENT ENT exam: Present mucous membranes moist Neck Neck exam: Absent trachea midline Chest Chest inspection: Present normal inspection Respiratory Respiratory exam: Present normal lung sounds bilaterally; Absent respiratory distress Cardiovascular Cardiovascular exam: Present regular rate and systolic murmur Abdominal Exam Abdominal exam: Present soft; Absent tenderness or guarding Extremities Exam Extremities exam: Present full ROM Neurological Exam Neurological exam: Present alert, oriented X3 and CN II-XII intact; Absent motor sensory deficit Psychiatric Psychiatric exam: Present normal affect Skin Skin exam: Absent rash Medical Decision Making Medical Records Medical records reviewed: Yes I reviewed the patient's medical records. George Inquiry Pt receiving controlled substance: No Vital Signs: 11/11/22 19:52 11/11/22 20:30 11/11/22 21:00 [place]
--- NOTE | 2022-11-11 20:47 | ECG_ITS ---
APPROVED REPORT Exam: Resting ECG HR:89 bpm ECG Measurements Heart Rate 89 AXES IN 137 P 53 QRSd 83 QRS -36 QT 323 T 51 QTc 370 Conclusion SINUS RHYTHM LEFT AXIS DEVIATION [QRS AXIS < -30] ABNORMAL ECG UNCONFIRMED REPORT Electronically signed by : Los Hoskins MD 11/12/2022 15:44:23
--- NOTE | 2022-11-11 20:47 | XR_ITS ---
PROCEDURE INFORMATION: Exam: XR Chest Exam date and time: 11/11/2022 8:44 PM Age: 86 years old Clinical indication: Cough TECHNIQUE: Imaging protocol: Radiologic exam of the chest. Views: 2 views. Total images: 2 COMPARISON: CR XR CHEST PORTABLE 09/24/2020 2:12 PM FINDINGS: Lungs: Unremarkable. No consolidation. No pulmonary vascular congestion or edema. Pleural spaces: Unremarkable. No pleural effusion. No pneumothorax. Heart/Mediastinum: Unremarkable. No cardiomegaly. No mediastinal widening or hilar enlargement. Vasculature: Tortuous thoracic aorta. Diaphragm: Mild eventration right hemidiaphragm. Bones/joints: Osteopenia. Moderate thoracolumbar scoliosis and degenerative changes. Multilevel thoracic vertebral body compression deformities. Soft tissues: Surgical clips left breast. IMPRESSION: No radiographically acute cardiopulmonary process.
[2022-11-11 20:56] LABS: Coronavirus 19, PCR Not Detected (NotDetected); Influenza A, PCR Not Detected (NotDetected); Influenza B, PCR Not Detected (NotDetected)
[2022-11-11 20:58] LABS: Basophils # 0.1 K/mm3 (0-0.2); Basophils % 0.7 % (0.1-2.0); Eosinophils # 0.2 K/mm3 (0.0-0.4); Eosinophils % 1.5 % (0.1-12.0); Hematocrit 45.3 % (37.0-47.0); Hemoglobin 14.2 g/dL (12.2-16.2); Lymphocytes # 2.5 K/mm3 (0.7-4.5); Mean Corpuscular HGB Conc 31.2 g/dL (31.8-35.4); Mean Corpuscular Hemoglobin 30.1 pg (27.0-31.2); Mean Corpuscular Volume 96.3 fl (81-99); Mean Platelet Volume 9.3 fl (7.4-10.4); Monocytes # 0.8 K/mm3 (0.1-1.0); Monocytes % 8.2 % (1.7-9.3); Neutrophils # 6.5 K/mm3 (1.8-7.8); Neutrophils % 64.8 % (37.0-80.0); Platelet Count 211 K/mm3 (142-424); Red Blood Count 4.71 M/mm3 (4.20-5.40); Red Cell Distribution Width 13.8 % (11.5-17.5); White Blood Count 10.1 K/mm3 (4.8-10.8)
[2022-11-11 21:04] LABS: Alanine Aminotransferase 20 U/L (12-78); Albumin Level 4.1 g/dl (3.5-5.0); Albumin/Globulin Ratio 1.2 (1.1-1.8); Alkaline Phosphatase 98 U/L (38-126); Anion Gap 10.4 mEq/L (5-15); Aspartate Amino Transferase 32 U/L (14-36); Bilirubin,Total 0.7 mg/dl (0.2-1.3); Blood Urea Nitrogen 17 mg/dl (7-17); Carbon Dioxide 30 mmol/L (22.0-30.0); Chloride 100 mmol/L (98-107); Creatinine Clearance Estimated 35 mL/min (50-200); Estimated Glomerular Filt Rate 47 ml/min (>60); GFR (African American) 57 ML/MIN (>60); Globulin 3.4 g/dL (1.3-3.2); Glucose 102 mg/dl (74-100); Lipase 127 U/L (23-300); Potassium 4.4 mmoL/L (3.5-5.1); Sodium 136 mmol/L (136-145); Total Protein,Serum 7.5 g/dl (6.3-8.2)
[2022-11-11 21:18] LABS: Troponin I < 0.01 ng/ml (0.00-0.034)
[2022-11-11 21:46] LABS: Microscopic, Urine URINE MICROSCOPIC (MICROSCOPIC)
[2022-11-11 21:51] LABS: Appearance,Urine CLOUDY (Clear); Bilirubin,Urine Negative (Negative); Blood, Urine 2+ (Negative); Color,Urine YELLOW (Yellow); Glucose,Urine (UA) Negative (Negative); Ketones,Urine Negative (Negative); Leukocyte Esterase,Urine 1+ (Negative); Nitrate,Urine Negative (Negative); PH,Urine 6.5 (5.0-8.5); Protein,Urine Negative (Negative); Urobilinogen,Urine 0.2 EU/dl (0.2)
[2022-11-11 22:16] LABS: Bacteria,Urine 3+ /lpf
== END 2022-11-11 23:17 | disposition home or self-care (01) ==
PROVIDERS: Emergency Provider Emergency Medicine; PCP Family Medicine
DX: J40 Bronchitis, not specified as acute or chronic (principal); R42 Dizziness and giddiness
CPT/HCPCS: 71046; 80053; 81001; 83690; 84484; 85025; 87086; 87088; 87186; 93005; 96374; 99285; C9803; J2405; U0003; U0005

== ENCOUNTER 2023-06-04 10:55 | Emergency (ER) | payer MEDICARE, SELFPAY ==
[2023-06-04 11:02] VITALS: BP 172/106; PULSE 101; RESP 16; TEMP 36.6; O2SAT 97
[2023-06-04 11:10] VITALS: BP 161/96; PULSE 99; RESP 18; O2SAT 99; BMI 21.9
--- NOTE | 2023-06-04 11:35 | HMH.EDGENADL ---
Discharge Plan Disposition Patient Disposition: Home, Self-Care Prescriptions Prescriptions: New cephalexin 500 mg capsule 1,000 mg PO BID 7 Days Qty: 28 0RF mupirocin 2 % ointment 1 applic topical BID 5 Days Qty: 22 0RF No Action clobetasol 0.05 % cream See Rx Instructions .ROUTE .COMPLEX Qty: 15 0RF Dose Instruction: APPLY CREAM TOPICALLY TWICE DAILY Rx Instructions: APPLY CREAM TOPICALLY TWICE DAILY anastrozole 1 MG tablet 1 mg PO DAILY cyanocobalamin (vitamin B-12) 1,000 MCG tablet 1,000 mcg PO DAILY Qty: 100 0RF ondansetron HCl 4 mg Tablet 4 mg PO Q8H PRN (Reason: Nausea) Qty: 20 0RF levofloxacin 500 mg tablet 500 mg PO DIRECTED Qty: 5 0RF Referrals Follow up/Referrals: Navya Delgado MD [Primary Care Provider] - See instructions Activity Restrictions/Add. Instructions Additional Instructions/Restrictions: Call your family doctor to establish care for this visit to the emergency department and schedule follow-up within 48 hours to ensure improvement. If you have any worsening of your condition or any other concerning signs or symptoms, return to the emergency department or your primary care doctor for further evaluation. Take Tylenol 1000 mg every 6 hours (4 times daily) and ibuprofen 400 mg every 6 hours (4 times daily) as needed with food and water to prevent GI upset and kidney damage. Mupirocin ointment once to twice daily, oral antibiotic twice daily for 7 days. Clinical Impressions Clinical Impression: Cellulitis Qualifiers: Site of cellulitis: extremity Site of cellulitis of extremity: lower extremity Laterality: right Qualified Code(s): L03.115 - Cellulitis of right lower limb Instructions Patient Instructions: DI for Laceration Repair Discharge ED Provider: Carlos Hairston General Adult HPI General Chief complaint: Wound/Laceration Stated complaint: POSSIBLE INFECTION IN LT LEG Time Seen by Provider: 06/04/23 11:02 Mode of Arrival: Ambulatory Source of Information: Patient Limitations: No Limitations Description of Symptoms (Recalled from ER Triage Doc. by RN): Patient reports she hit her lower left leg with a piece of wood on . Patient was seen same day by her PCP and was told to just keep the area clean with soap and water. Patient reports today the wound started leaking yellow drainage and was worried the sight may be infected. History of Present Illness HPI narrative: 87-year-old female with history of breast cancer currently on oral chemotherapy presenting with right leg injury. Patient states that about 5 days prior to arrival, she injured her right leg with a piece of wood while loading a fire. Saw PCP, recommended local wound care and follow-up as needed. Patient having redness, swelling and increased pain with drainage. Denies fevers or chills, nausea or vomiting, but does have red streaking around the area with associated tenderness. Related Data Home Medications Medication Instructions Recorded Confirmed anastrozole 1 mg tablet 1 mg PO DAILY CANCER 09/24/20 09/24/20 Previous Rx's Medication Instructions Recorded cyanocobalamin (vitamin B-12) 1,000 mcg PO DAILY #100 tabs 09/26/20 1,000 mcg tablet levofloxacin 500 mg tablet 500 mg PO DIRECTED #5 tabs 11/11/22 ondansetron HCl 4 mg tablet 4 mg PO Q8H PRN Nausea #20 tabs 11/11/22 clobetasol 0.05 % topical cream See Rx Instructions .Route 03/23/23 .COMPLEX #15 grams cephalexin 500 mg capsule 1,000 mg PO BID 7 days #28 caps 06/04/23 mupirocin 2 % topical ointment 1 applic topical BID 5 days #22 06/04/23 grams Allergies Allergy/AdvReac Type Severity Reaction Status Date / Time No Known Allergies Allergy Verified 09/12/21 08:37 [facility] Disclaimer: The information contained in this section may have been updated after the patient was seen, as this information can be updated by other users. Social History Smoking Status: Never smoker alcohol inta
[2023-06-04 11:59] VITALS: BP 154/89; PULSE 72; RESP 18; TEMP 36.6; O2SAT 99
== END 2023-06-04 12:01 | disposition home or self-care (01) ==
PROVIDERS: Emergency Provider Emergency Medicine; PCP Family Medicine
DX: L03.116 Cellulitis of left lower limb (principal); L03.115 Cellulitis of right lower limb
CPT/HCPCS: 90715; 99283

== ENCOUNTER 2023-06-07 23:42 | Emergency (ER) | payer MEDICARE, SELFPAY ==
[2023-06-07 23:45] VITALS: BP 127/93; PULSE 93; RESP 16; TEMP 36.6; O2SAT 98; BMI 22.3
--- NOTE | 2023-06-08 00:10 | HMH.EDGENADL ---
Discharge Plan Disposition Patient Disposition: Home, Self-Care Prescriptions Prescriptions: New sulfamethoxazole-trimethoprim 800-160 mg tablet 1 tab PO BID 7 Days Qty: 14 0RF No Action clobetasol 0.05 % cream See Rx Instructions .ROUTE .COMPLEX Qty: 15 0RF Dose Instruction: APPLY CREAM TOPICALLY TWICE DAILY Rx Instructions: APPLY CREAM TOPICALLY TWICE DAILY anastrozole 1 MG tablet 1 mg PO DAILY cyanocobalamin (vitamin B-12) 1,000 MCG tablet 1,000 mcg PO DAILY Qty: 100 0RF cephalexin 500 mg capsule 1,000 mg PO BID 7 Days Qty: 28 0RF mupirocin 2 % ointment 1 applic topical BID 5 Days Qty: 22 0RF ondansetron HCl 4 mg Tablet 4 mg PO Q8H PRN (Reason: Nausea) Qty: 20 0RF levofloxacin 500 mg tablet 500 mg PO DIRECTED Qty: 5 0RF Referrals Follow up/Referrals: Navya Delgado MD [Primary Care Provider] - See instructions Activity Restrictions/Add. Instructions Additional Instructions/Restrictions: Please take Bactrim as prescribed. Please follow-up with your primary care provider. Please return to the emergency department if you develop any new or worsening symptoms or become concerned for your health. Pay close attention to the wound. If the redness continues to worsen, if you develop pus, if you develop fever, please return to the emergency department for reevaluation. Clinical Impressions Clinical Impression: Skin tear Cellulitis Qualifiers: Site of cellulitis: extremity Site of cellulitis of extremity: lower extremity Laterality: left Qualified Code(s): L03.116 - Cellulitis of left lower limb Instructions Patient Instructions: DI for Laceration Repair Discharge ED Provider: Jose Miguel Santizo General Adult HPI General Chief complaint: Wound/Laceration Stated complaint: AO 05/31/23 Injury left leg,open wound Time Seen by Provider: 06/07/23 23:52 Mode of Arrival: Ambulatory Source of Information: Patient Limitations: No Limitations Description of Symptoms (Recalled from ER Triage Doc. by RN): pt reports being hit in leg with a lice of wood that caused a opening in her left alamo, seen here and placed on antibitics, states she has had some swelling develope in her left foot tonight, denies pain History of Present Illness HPI narrative: 87-year-old female, history as reported below presents for wound check. She struck her alamo with a piece of wood last week and developed a skin tear. She was seen here few days ago for evaluation and was discharged with a prescription for cephalexin. She presents tonight because she feels like her foot is little bit more swollen and the redness is moving down a little bit. She denies any fever at home, denies any purulent drainage. She is not on immunosuppressants. She is walking without difficulty. Denies any calf pain or swelling. Related Data Home Medications Medication Instructions Recorded Confirmed anastrozole 1 mg tablet 1 mg PO DAILY CANCER 09/24/20 09/24/20 Previous Rx's Medication Instructions Recorded cyanocobalamin (vitamin B-12) 1,000 mcg PO DAILY #100 tabs 09/26/20 1,000 mcg tablet levofloxacin 500 mg tablet 500 mg PO DIRECTED #5 tabs 11/11/22 ondansetron HCl 4 mg tablet 4 mg PO Q8H PRN Nausea #20 tabs 11/11/22 clobetasol 0.05 % topical cream See Rx Instructions .Route 03/23/23 .COMPLEX #15 grams cephalexin 500 mg capsule 1,000 mg PO BID 7 days #28 caps 06/04/23 mupirocin 2 % topical ointment 1 applic topical BID 5 days #22 06/04/23 grams sulfamethoxazole 800 1 tab PO BID 7 days #14 tabs 06/08/23 mg-trimethoprim 160 mg tablet Allergies Allergy/AdvReac Type Severity Reaction Status Date / Time No Known Allergies Allergy Verified 09/12/21 08:37 [facility] Disclaimer: The information contained in this section may have been updated after the patient was seen, as this information can be updated by other users. Social History Smoking Status: Never smoker alcohol intake:
[2023-06-08 00:20] VITALS: BP 133/85; PULSE 88; RESP 16; TEMP 36.8; O2SAT 97
== END 2023-06-08 00:23 | disposition home or self-care (01) ==
PROVIDERS: Emergency Provider Emergency Medicine; PCP Family Medicine
DX: L03.116 Cellulitis of left lower limb (principal)
CPT/HCPCS: 99283

== ENCOUNTER 2024-06-27 15:48 | Outpatient (CLI) | payer MEDICARE, SELFPAY ==
--- NOTE | 2024-06-27 16:02 | XR_ITS ---
PROCEDURE INFORMATION: Exam: XR Lumbosacral Spine Exam date and time: 06/27/2024 4:14 PM Age: 88 years old Clinical indication: Patient HX: Low back pain. TECHNIQUE: Imaging protocol: Radiologic exam of the lumbosacral spine. Views: 4 or 5 views. COMPARISON: CR XR HIP RT 2-3V W/PELVIS 06/27/2024 4:14 PM FINDINGS: Bones/joints: There is a dextroscoliotic curvature of the spine. The alignment of the lumbar spine is within normal limits with maintained lumbar lordosis. There are moderate degenerative changes characterized by disc space narrowing at multiple levels, most pronounced in the lower lumbar region. There is evidence of osteophyte formation along the vertebral bodies. The facet joints show moderate hypertrophic changes. The vertebral body heights are preserved, and there are no signs of acute fracture or dislocation. Soft tissues: Unremarkable. Vasculature: The visualized portions of the abdominal aorta and pelvic bones appear unremarkable. Other findings: Prevertebral and paravertebral soft tissues appear unremarkable. IMPRESSION: 1. 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 2. No evidence of acute fracture or significant malalignment.
--- NOTE | 2024-06-27 16:02 | XR_ITS ---
PROCEDURE INFORMATION: Exam: XR Right Hip Exam date and time: 06/27/2024 4:14 PM Age: 88 years old Clinical indication: Hip pain; Right hip; Additional info: Low back and right hip pain. TECHNIQUE: Imaging protocol: Radiologic exam of the right hip. Views: 2 or 3 views hip with pelvis when performed. COMPARISON: CR XR LUMBAR SPINE MIN 4V 06/27/2024 4:14 PM FINDINGS: Bones/joints: The osseous structures are intact, with no signs of acute fracture, dislocation, or malalignment. Age-related degenerative changes are observed. There is no evidence of abnormal bone density or destructive lesions. Soft tissues: The soft tissues appear within normal limits. Vasculature: Multiple pelvic phleboliths are present. IMPRESSION: At the time of imaging, the study shows no acute osseous abnormalities but does reveal signs of age-related degenerative changes.
--- NOTE | 2024-06-27 16:02 | XR_ITS ---
PROCEDURE INFORMATION: Exam: XR Chest Exam date and time: 06/27/2024 4:14 PM Age: 88 years old Clinical indication: Other: Sciatic nerve pain, right pain, back pain TECHNIQUE: Imaging protocol: Radiologic exam of the chest. Views: 2 views. COMPARISON: No relevant prior studies available. FINDINGS: Lungs: No evidence of acute pulmonary disease or infiltrates Pleural spaces: No large effusion or pneumothorax. Heart/Mediastinum: No evidence of mediastinal widening or cardiac silhouette enlargement; the mediastinum and heart appear within normal limits for contour and size. Diaphragm: There is elevation of the right hemidiaphragm. Bones/joints: No evidence of acute osseous abnormalities within the visualized portions of the thoracic spine and ribs. Osseous structures appear appropriate for patient age. There are degenerative changes of the thoracic spine. IMPRESSION: No dense parenchymal consolidation, pleural effusion, or pneumothorax.
== END 2024-06-27 23:59 | disposition home or self-care (01) ==
LOC: RAD 15:58
PROVIDERS: PCP Family Medicine; Visit Provider Nurse Practitioner
DX: M25.551 Pain in right hip (principal); M54.40 Lumbago with sciatica, unspecified side
CPT/HCPCS: 71046; 72110; 73502

== ENCOUNTER 2024-12-08 09:15 | Outpatient (CLI) | payer MEDICARE, SELFPAY ==
--- NOTE | 2024-12-08 09:18 | XR_ITS ---
FINAL REPORT TECHNIQUE: Bone densitometry calculations of the lumbar spine and left hip were obtained. CLINICAL HISTORY: SCREENING COMPARISON: None FINDINGS: Using L1-4, the bone mineral density of the spine is 0.970 g/cm2, corresponding to T-score of -0.7. Using the left hip, the bone mineral density of the femoral neck is 0.814 g/cm2, corresponding to a T-score of -1.0. Using the right hip, the bone mineral density of the femoral neck is 0.816 g/cm?, corresponding to a T-score of -1.0. NOTE: T-score: Standard deviation compared with peak bone mass of young adult mean. *Following the recommendations of the International Society of Bone densitometry, classification of hip BMD is based on the lower of two T-scores; total hip or femoral neck. IMPRESSION: Diminished bone mineral density of the lumbar spine and bilateral hips consistent with osteopenia, although the bone mineral density in the hips bilaterally is borderline elevated. Reviewed, Interpreted and Dictated by Pierre Pack MD Transcribed by Romina Matt Authenticated and [facility]
== END 2024-12-08 23:59 | disposition home or self-care (01) ==
LOC: RAD 09:15
PROVIDERS: PCP Family Medicine; Visit Provider Internal Medicine
DX: Z78.0 Asymptomatic menopausal state (principal); Z13.820 Encounter for screening for osteoporosis
CPT/HCPCS: 77080

== ENCOUNTER 2024-12-24 11:33 | Outpatient (CLI) | payer MEDICARE, SELFPAY ==
--- NOTE | 2024-12-24 11:35 | XR_ITS ---
FINAL REPORT CLINICAL HISTORY: cough/chest congestion FINDINGS: 2 views of the chest were obtained . The heart is normal in size. The mediastinum is within normal limits. The lungs are clear. There is no pneumothorax. Osseous structures are unremarkable. IMPRESSION: No acute cardiopulmonary process. Reviewed, Interpreted and Dictated by Pierre Pack MD Transcribed by Pallavi Johnson Authenticated and [facility]
--- OUTSIDE RECORDS SUMMARY | 2024-12-24 11:35 | XMS_ITS | Data Portability ---
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 She is on adjuvant anastrozole. We will see her back in 6 months, no labs and just do an exam on her and we will plan on kind of, we may space further and further out. Given the fact that she had a mucinous cancer that is ER positive, there is really fairly low risk for her moving forward. Additionally, she did have a bruise on her leg that we recommended that she stay away from antibiotic creams. 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 She is on adjuvant anastrozole. We will see her back in 6 months, no labs and just do an exam on her and we will plan on kind of, we may space further and further out. [email or web address] Not available 09/22/2020 12:47:14 03/16/2021 03/16/2021 1. This is an 85-year-old female now more than 2 years out from an early stage ER positive breast cancer. She has a mucinous cancer. In the left breast, the specific quadrant is unspecified. She is status post partial mastectomy. She had no adjuvant radiation. She is on adjuvant anastrozole, tolerating it well. She returns now 2 years out. We will just recommend that she come back in a full year. We will follow up on her labs from today and give her a phone call and let her know that everything is okay as she worries about this. 2. We will see her back now a full year. We will repeat labs, mammogram, and exam at that time. Should she have any change or any other concerns, I will be happy to see her back. 3. She also has complaints of some memory issues that she thinks is probably just related to, the pandemic which is understandable. [email or web address] Not available 03/17/2021 03:35:36 04/05/2022 04/05/2022 This is an 86-year-old female originally seen by me in late March 2019. 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 She did not get radiation ____. She has been on adjuvant hormonal therapy with no evidence of any recurrence today. This is now 3 years' worth of treatment. Our goal is full 5 years' worth of adjuvant hormonal therapy. She is having little or no side effects and continues to have a great attitude and really is taking her advancing age and stride. [email or web address] Not available 04/12/2022 09:25:59 04/11/2023 04/11/2023 1. This is an 87-year-old female, now 4 years out from diagnosis of early stage ER positive breast cancer, T1c, N0, M0, quadrant specified. 2. No adjuvant radiation. 3. Discussion of adjuvant hormonal therapy. She continues on this and now she is now 4 years out. Our goal is just to do 1 more year therapy and have her come back and get a mammogram next year and that will be all. 4. She did have some skin changes, lashes on her cheek and we sent her to Dr. Dawn and unfortunately did come back as a basal cell, but everything was removed and she is very happy with that and they continue to follow up periodically with Dr. Dawn, who have been incredibly pleased with his bedside manner and help. [email or web address] Not available 04/12/2023 04:35:33 Plan of Treatment Reminders Order Date Submit Date Provider Last Modified By Organization Details Last Modified Time Details Appointments DERMATOLO GY VISIT 2024 11:00A M WILLY DAWN MD Not available Not available Not available Lab None recorded. Referral None recorded. Procedures None recorded. Surgeries None recorded. Imaging None recorded. Medication Orders anastrozo le 1 mg tablet 2020 021 INTERFACE [facility], [address], [address], 09/08/2020 11:36:40 Patient TargetsNo targets recorded. Patient InstructionsNo instructions recorded. Reason for Referral None Reported. Results Created Date Observation Date Name Description Value Unit Range Abnormal Flag Note LastModifiedBy Organization Detail LastModifiedTime 03/10/2003/10/2020 CBC w/ auto diff white blood cells 6.4 K/uL 3.8-10 .8 normal Not Available [facility] [address] [place] [address], [address], 03/10/2020 10:09:10 03/10/2003/10/2020 CBC w/ auto diff red blood cells 4.38 M/uL 3.80-5 .20 normal Not Available [facility] [address] [place] [address], [address], 03/10/2020 10:09:10 03/10/2003/10/2020 CBC w/ auto diff hemoglobin 13.2 g/dL 12.0-1 6.0 normal Not Available [facility] [address] [place] [address], [address], 03/10/2020 10:09:10 03/10/2003/10/2020 CBC w/ auto diff hematocrit 40.2 % 35.0-4 7.0 normal Not Available [facility] [address] [place] [address], [address], 03/10/2020 10:09:10 03/10/2003/10/2020 CBC w/ auto diff MCV 92 fL 80-100 normal Not Available [facility] [address] [place] [address], [address], 03/10/2020 10:09:10 03/10/20 20 03/10/2020 CBC w/ auto diff MCH 30 pg 26-35 normal Not Available [facility] [address] [place] [address], [address], 03/10/2020 10:09:10 03/10/20 20 03/10/2020 CBC w/ auto diff MCHC 33 g/dL 32-36 normal Not Available [facility] [address] [place] [address], [address], 03/10/2020 10:09:10 03/10/20 20 03/10/2020 CBC w/ auto diff RDW 14.6 % 11.0-1 5.0 normal Not Available [facility] [address] [place] [address], [address], 03/10/2020 10:09:10 03/10/20 20 03/10/2020 CBC w/ auto diff MPV 9.7 fL 6.2-10 .5 normal Not Available [facility] [address] [place] [address], [address], 03/10/2020 10:09:10 03/10/20 20 03/10/2020 CBC w/ auto diff platelet count 161 K/uL 130-40 0 normal Not Available [facility] [address] [place] [address], [address], 03/10/2020 10:09:10 03/10/20 20 03/10/2020 CBC w/ auto diff neutrophil,a bsolute 3.1 K/uL 1.6-8. 4 normal Not Available [facility] [address] [place] [address], [address], 03/10/2020 10:09:10 03/10/20 20 03/10/2020 CBC w/ auto diff lymphocyte,a bsolute 2.4 K/uL 0.4-5. 1 normal Not Available [facility] [address] [place] [address], [address], 03/10/2020 10:09:10 03/10/2003/10/2020 CBC w/ auto diff monocyte,abs olute 0.5 K/uL 0.0-1. 2 normal Not Available [facility] [address] [place] [address], [address], 03/10/2020 10:09:10 03/10/2003/10/2020 CBC w/ auto diff eosinophil,a bsolute 0.2 K/uL 0.0-0. 8 normal Not Available [facility] [address] [place] [address], [address], 03/10/2020 10:09:10 03/10/2003/10/2020 CBC w/ auto diff basophil,abs olute 0.1 K/uL 0.0-0. 3 normal Not Available [facility] [address] [place] [address], [address], 03/10/2020 10:09:10 03/10/2003/10/2020 CBC w/ auto diff % neutrophils 48.9 % 42.0-7 8.0 normal Not Available [facility] [address] [place] [address], [address], 03/10/2020 10:09:10 03/10/2003/10/2020 CBC w/ auto diff % lymphocytes 37.8 % 11.0-4 7.0 normal Not Available [facility] [address] [place] [address], [address], 03/10/2020 10:09:10 03/10/2003/10/2020 CBC w/ auto diff % monocytes 8.5 % 0.0-11 .0 normal Not Available [facility] [address] [place] [address], [address], 03/10/2020 10:09:10 03/10/2003/10/2020 CBC w/ auto diff % eosinophils 3.0 % 0.0-7. 0 normal Not Available [facility] [address] [place] [address], [address], 03/10/2020 10:09:10 03/10/20 20 03/10/2020 CBC w/ auto diff % basophils 1.8 % 0.0-3. 0 normal Not Available [facility] [address] [place] [address], [address], 03/10/2020 10:09:10 03/10/20 20 03/10/2020 CBC w/ auto diff nucleated red cells 0.0 % 0.0-0. 9 normal Not Available [facility] [address] [place] [address], [address], 03/10/2020 10:09:10 03/10/2003/10/2020 CBC w/ auto diff nucleated RBCs, absolute 0.00 K/uL not estab. normal Not Available [facility] [address] [place] [address], [address], 03/10/2020 10:09:10 03/10/2003/10/2020 CMP, serum or plasm a glucose 83 mg/dL 74-100 normal Not Available [facility] [address] [place] [address], [address], 03/10/2020 10:26:04 03/10/2003/10/2020 CMP, serum or plasm a blood urea nitrogen 13 mg/dL 6-20 normal Not Available [facility] [address] [place] [address], [address], 03/10/2020 10:26:04 03/10/20 20 03/10/2020 CMP, serum or plasm a creatinine 1.14 mg/dL 0.50-0 .95 high Not Available [facility] [address] [place] [address], [address], 03/10/2020 10:26:04 03/10/20 20 03/10/2020 CMP, serum or plasm a BUN/creatini ne ratio 11 (calc ) 10-20 normal Not Available [facility] [address] [place] [address], [address], 03/10/2020 10:26:04 03/10/20 20 03/10/2020 CMP, serum or plasm a sodium 144 mmol/ L 136-14 5 normal Not Available [facility] [address] [place] [address], [address], 03/10/2020 10:26:04 03/10/20 20 03/10/2020 CMP, serum or plasm a potassium 4.2 mmol/ L 3.4-5. 0 normal Not Available [facility] [address] [place] [address], [address], 03/10/2020 10:26:04 03/10/20 20 03/10/2020 CMP, serum or plasm a chloride 105 mmol/ L 98-107 normal Not Available [facility] [address] [place] [address], [address], 03/10/2020 10:26:04 03/10/20 20 03/10/2020 CMP, serum or plasm a carbon dioxide 25 mmol/ L 20-32 normal Not Available [facility] [address] [place] [address], [address], 03/10/2020 10:26:04 03/10/20 20 03/10/2020 CMP, serum or plasm a anion gap 14 (calc ) 7-25 normal Not Available [facility] [address] [place] [address], [address], 03/10/2020 10:26:04 03/10/20 20 03/10/2020 CMP, serum or plasm a calcium 9.1 mg/dL 8.6-10 .2 normal Not Available [facility] [address] [place] [address], [address], 03/10/2020 10:26:04 03/10/20 20 03/10/2020 CMP, serum or plasm a total protein 7.1 g/dL 6.4-8. 3 normal Not Available [facility] [address] [place] [address], [address], 03/10/2020 10:26:04 03/10/20 20 03/10/2020 CMP, serum or plasm a albumin 4.0 g/dL 3.5-5. 2 normal Not Available [facility] [address] [place] [address], [address], 03/10/2020 10:26:04 03/10/20 20 03/10/2020 CMP, serum or plasm a globulin 3.1 g/dL_ (calc ) 1.5-4. 5 normal Not Available [facility] [address] [place] [address], [address], 03/10/2020 10:26:04 03/10/2003/10/2020 CMP, serum or plasm a albumin/glob ulin ratio 1.3 (calc ) 1.1-2. 5 normal Not Available [facility] [address] [place] [address], [address], 03/10/2020 10:26:04 03/10/2003/10/2020 CMP, serum or plasm a bilirubin, total 0.4 mg/dL 0.1-1. 2 normal Not Available [facility] [address] [place] [address], [address], 03/10/2020 10:26:04 03/10/2003/10/2020 CMP, serum or plasm a alkaline phosphatase 77 U/L 35-105 normal Not Available [facility] [address] [place] [address], [address], 03/10/2020 10:26:04 03/10/2003/10/2020 CMP, serum or plasm a AST 20 U/L 0-32 normal Not Available [facility] [address] [place] [address], [address], 03/10/2020 10:26:04 03/10/2003/10/2020 CMP, serum or plasm a ALT 14 U/L 0-33 normal Not Available [facility] [address] [place] [address], [address], 03/10/2020 10:26:04 03/10/20 20 03/10/2020 CMP, serum or plasm a GFR 51 >= 60 abnormal Not Available [facility] [address] [place], [address], 03/10/2020 10:26:04 03/10/20 20 03/10/2020 CMP, serum or plasm a GFR non- 44 >= 60 abnormal NOT E NEW calcu latio n for GFR is based on the Natio nal Kidne y Found ation CKD-E PI equat ion and allow s for repor ting GFR value s great er than 60 mL/mi n/1.7 3 m2. This calcu latio n has not been valid ated for patie nts less than 18 yrs., pregn ant women and Hispa nics. Chron ic kidne y disea se is defin ed as kidne y damag e or GFR less than 60 mL/mi n/1.7 3 m2 for 3 month s or longe r. Not Available [facility] [address] [place] [address], [address], 03/10/2020 10:26:04 03/16/20 21 03/16/2021 COMPL ETE BLOOD COUNT white blood cells 6.3 K/uL 3.8-10 .8 normal Not Available [facility] [address] [place] [address], [address], 03/16/2021 13:16:24 03/16/20 21 03/16/2021 COMPL ETE BLOOD COUNT red blood cells 4.28 M/uL 3.80-5 .20 normal Not Available [facility] [address] [place] [address], [address], 03/16/2021 13:16:24 03/16/20 21 03/16/2021 COMPL ETE BLOOD COUNT hemoglobin 12.7 g/dL 12.0-1 6.0 normal Not Available [facility] [address] [place] [address], [address], 03/16/2021 13:16:24 03/16/20 21 03/16/2021 COMPL ETE BLOOD COUNT hematocrit 39.0 % 35.0-4 7.0 normal Not Available [facility] [address] [place] [address], [address], 03/16/2021 13:16:24 03/16/20 21 03/16/2021 COMPL ETE BLOOD COUNT MCV 91 fL 80-100 normal Not Available [facility] [address] [place] [address], [address], 03/16/2021 13:16:24 03/16/2003/16/2021 COMPL ETE BLOOD COUNT MCH 30 pg 26-35 normal Not Available [facility] [address] [place] [address], [address], 03/16/2021 13:16:24 03/16/20 21 03/16/2021 COMPL ETE BLOOD COUNT MCHC 33 g/dL 32-36 normal Not Available [facility] [address] [place] [address], [address], 03/16/2021 13:16:24 03/16/20 21 03/16/2021 COMPL ETE BLOOD COUNT RDW 14.1 % 11.0-1 5.0 normal Not Available [facility] [address] [place] [address], [address], 03/16/2021 13:16:24 03/16/20 21 03/16/2021 COMPL ETE BLOOD COUNT MPV 9.7 fL 6.2-10 .5 normal Not Available [facility] [address] [place] [address], [address], 03/16/2021 13:16:24 03/16/20 21 03/16/2021 COMPL ETE BLOOD COUNT platelet count 169 K/uL 130-40 0 normal Not Available [facility] [address] [place] [address], [address], 03/16/2021 13:16:24 03/16/2003/16/2021 COMPL ETE BLOOD COUNT neutrophil,a bsolute 3.6 K/uL 1.6-8. 4 normal Not Available [facility] [address] [place] [address], [address], 03/16/2021 13:16:24 03/16/20 21 03/16/2021 COMPL ETE BLOOD COUNT lymphocyte,a bsolute 2.0 K/uL 0.4-5. 1 normal Not Available [facility] [address] [place] [address], [address], 03/16/2021 13:16:24 03/16/2003/16/2021 COMPL ETE BLOOD COUNT monocyte,abs olute 0.5 K/uL 0.0-1. 2 normal Not Available [facility] [address] [place] [address], [address], 03/16/2021 13:16:24 03/16/2003/16/2021 COMPL ETE BLOOD COUNT eosinophil,a bsolute 0.2 K/uL 0.0-0. 8 normal Not Available [facility] [address] [place] [address], [address], 03/16/2021 13:16:24 03/16/2003/16/2021 COMPL ETE BLOOD COUNT basophil,abs olute 0.0 K/uL 0.0-0. 3 normal Not Available [facility] [address] [place] [address], [address], 03/16/2021 13:16:24 03/16/2003/16/2021 COMPL ETE BLOOD COUNT % neutrophils 57.0 % 42.0-7 8.0 normal Not Available [facility] [address] [place] [address], [address], 03/16/2021 13:16:24 03/16/20 21 03/16/2021 COMPL ETE BLOOD COUNT % lymphocytes 31.0 % 11.0-4 7.0 normal Not Available [facility] [address] [place] [address], [address], 03/16/2021 13:16:24 03/16/20 21 03/16/2021 COMPL ETE BLOOD COUNT % monocytes 8.7 % 0.0-11 .0 normal Not Available [facility] [address] [place] [address], [address], 03/16/2021 13:16:24 03/16/20 21 03/16/2021 COMPL ETE BLOOD COUNT % eosinophils 2.7 % 0.0-7. 0 normal Not Available [facility] [address] [place] [address], [address], 03/16/2021 13:16:24 03/16/20 21 03/16/2021 COMPL ETE BLOOD COUNT % basophils 0.6 % 0.0-3. 0 normal Not Available [facility] [address] [place] [address], [address], 03/16/2021 13:16:24 03/16/20 21 03/16/2021 COMPL ETE BLOOD COUNT nucleated red cells 0.1 % 0.0-0. 9 normal Not Available [facility] [address] [place] [address], [address], 03/16/2021 13:16:24 03/16/20 21 03/16/2021 COMPL ETE BLOOD COUNT nucleated RBCs, absolute 0.00 K/uL not estab. normal Not Available [facility] [address] [place] [address], [address], 03/16/2021 13:16:24 03/16/20 21 03/16/2021 COMP. METAB OLIC PANEL glucose 87 mg/dL 74-100 normal Not Available [facility] [address] [place] [address], [address], 03/16/2021 13:33:25 03/16/20 21 03/16/2021 COMP. METAB OLIC PANEL blood urea nitrogen 15 mg/dL 6-20 normal Not Available [facility] [address] [place] [address], [address], 03/16/2021 13:33:25 03/16/20 21 03/16/2021 COMP. METAB OLIC PANEL creatinine 1.02 mg/dL 0.50-0 .95 high Not Available [facility] [address] [place] [address], [address], 03/16/2021 13:33:25 03/16/20 21 03/16/2021 COMP. METAB OLIC PANEL BUN/creatini ne ratio 15 (calc ) 10-20 normal Not Available [address], [address], 03/16/2021 13:33:25 03/16/20 21 03/16/2021 COMP. METAB OLIC PANEL sodium 141 mmol/ L 136-14 5 normal Not Available [facility] [address] [place] [address], [address], 03/16/2021 13:33:25 03/16/20 21 03/16/2021 COMP. METAB OLIC PANEL potassium 4.3 mmol/ L 3.4-5. 0 normal Not Available [facility] [address] [place] [address], [address], 03/16/2021 13:33:25 03/16/20 21 03/16/2021 COMP. METAB OLIC PANEL chloride 106 mmol/ L 98-107 normal Not Available [facility] [address] [place] [address], [address], 03/16/2021 13:33:25 03/16/20 21 03/16/2021 COMP. METAB OLIC PANEL carbon dioxide 23 mmol/ L 22-31 normal Not Available [facility] [address] [place] [address], [address], 03/16/2021 13:33:25 03/16/20 21 03/16/2021 COMP. METAB OLIC PANEL anion gap 12 (calc ) 7-25 normal Not Available [facility] [address] [place] [address], [address], 03/16/2021 13:33:25 03/16/20 21 03/16/2021 COMP. METAB OLIC PANEL calcium 9.0 mg/dL 8.6-10 .2 normal Not Available [facility] [address] [place] [address], [address], 03/16/2021 13:33:25 03/16/20 21 03/16/2021 COMP. METAB OLIC PANEL total protein 6.6 g/dL 6.4-8. 3 normal Not Available [facility] [address] [place] [address], [address], 03/16/2021 13:33:25 03/16/20 21 03/16/2021 COMP. METAB OLIC PANEL albumin 3.7 g/dL 3.5-5. 2 normal Not Available [facility] [address] [place] [address], [address], 03/16/2021 13:33:25 03/16/20 21 03/16/2021 COMP. METAB OLIC PANEL globulin 2.9 g/dL_ (calc ) 1.5-4. 5 normal Not Available [facility] [address] [place] [address], [address], 03/16/2021 13:33:25 03/16/20 21 03/16/2021 COMP. METAB OLIC PANEL albumin/glob ulin ratio 1.3 (calc ) 1.1-2. 5 normal Not Available [facility] [address] [place] [address], [address], 03/16/2021 13:33:25 03/16/20 21 03/16/2021 COMP. METAB OLIC PANEL bilirubin, total 0.3 mg/dL 0.1-1. 2 normal Not Available [facility] [address] [place] [address], [address], 03/16/2021 13:33:25 03/16/20 21 03/16/2021 COMP. METAB OLIC PANEL alkaline phosphatase 81 U/L 35-106 normal Not Available [facility] [address] [place] [address], [address], 03/16/2021 13:33:25 03/16/20 21 03/16/2021 COMP. METAB OLIC PANEL AST 17 U/L 0-32 normal Not Available [facility] [address] [place] [address], [address], 03/16/2021 13:33:25 03/16/20 21 03/16/2021 COMP. METAB OLIC PANEL ALT 13 U/L 0-33 normal Not Available [facility] [address] [place] [address], [address], 03/16/2021 13:33:25 03/16/20 21 03/16/2021 COMP. METAB OLIC PANEL GFR 58 >= 60 abnormal Not Available [facility] [address] [place] [address], [address], 03/16/2021 13:33:25 03/16/20 21 03/16/2021 COMP. METAB OLIC PANEL GFR non- 50 >= 60 abnormal NOT E Chron ic kidne y disea se is defin ed as kidne y damag e for more than 3 month s or a GFR less than 60 mL/mi n/1.7 3 m2 for great er than 3 month s. This calcu latio n has not been valid ated in pregn ant women . For pedia tric patie nts refer to Natio nal Kidne y Found ation https ://geovanny [email or web address].jayjay diop.o rg/pr ofess ional s/KDO QI/gf r_cal culat orPed Not Available [facility] [address] [place] [address], [address], 03/16/2021 13:33:25 03/10/20 20 03/10/2020 MAMMO , scree jodie, tomos ynthe sis, bilat eral, w/ CAD [facility] [address] [facility] [place] [address] Damari dalton Name: FRANKIE dalton : [id number] Age: 84 years Patimann dalton 20 Orderi ng Provid er: JOS Crowe CAMP EXAM DATE: 2019 EXAM: MG SCREEN ING [place] [facility] MERY INDICA TION: This is an 84-yea r-old woman with a histor y of left breast cancer diagno sed in 2019 and treate d with breast conser ving surger y. PROCED URE: Multis lice imagin g of both breast s was perfor med in standa rd projec tions using Hologi c Seleni a Dimens ions tomosy nthesi s equipm ent (3D mammog ok) . 2D images were create d from the 3D datase t using C-View softwa re. The study was read with the assist ance of Comput er Aided Detect ion (CAD) softwa re. COMPAR STACI: This was compar ed with previo us mammog bev dated 2018 FINDIN GS: There are scatte red fibrog landul ar elemen ts in the breast s. There is expect ed scarri ng from partia l mastec jarrett in the upper outer left breast . There is a surgic al clip in this area. A surgic al clip is also noted in the left axilla . There are arteri ovascu lar calcif icatio ns bilate rally. There is no mass or cluste r of calcif icatio ns in either breast . IMPRES ILEANA: BI-RAD S catego ry 2, Benign . There is no eviden ce of malign shyann. Screen ing mammog bev are recomm ended in one year. Result s were mailed or given to the damari dalton. Interp reted By: Carlos walters MD Electr onical ly Signed By: Carlos walters MD on 020 10:[address] Radiology [facility] [address] [place], [address], 03/10/2020 13:27:08 03/16/20 21 03/16/2021 MAMMO , scree jodie, tomos ynthe sis, bilat eral, w/ CAD [facility] [address] [place] [address], [place] [id number] Damari dalton Name: FRANKIE dalton : 936 Age: 85 years Patimann dalton 20 Orderi ng Provid er: JOS GALLEGOS EXAM DATE: 2020 EXAM: MG SCREEN ING [place] [facility] MERY INDICA TION: Routin e screen ing. PROCED URE: Multis lice imagin g of both breast s was perfor med in standa rd projec tions using Hologi c Seleni a Dimens ions tomosy nthesi s equipm ent (3D mammog ok) . 2D images were create d from the 3D datase t using C-View softwa re. The study was read with the assist ance of Comput er Aided Detect ion (CAD) softwa re. COMPAR STACI: This was compar ed with previo us mammog bev dated 020, 019 FINDIN GS: There are scatte red fibrog landul ar elemen ts in the breast s. There is no suspic ious mass or cluste r of calcif icatio ns. No mauri ectura l distor tion. Lumpec jarrett sequel a in the superi or left breast . Arteri ovascu lar calcif icatio ns are noted in both breast s. IMPRES ILEANA: BI-RAD S catego ry 2, Benign . There is no eviden ce of malign shyann. Screen ing mammog bev are recomm ended in one year. Result s were mailed or given to the damari dalton. Interp reted By: Tony Gonzalez MD Electr onical ly Signed By: Tony Gonzalez MD on 03/16/20 21 11:[address] Radiology [facility] [address] [place], [address], 03/16/2021 12:06:38 04/05/20 22 04/05/2022 MAMMO , scree jodie, tomos ynthe sis, bilat eral, w/ CAD [address] [address] Damari dalton Name: FRANKIE dalton : [id number] Age: 86 years Patimann t 20 Orderi ng Provid er: JOS GALLEGOS EXAM DATE: 2021 EXAM: MG SCREEN ING [place] MAMMOG MERY INDICA TION: Screen ing. Histor y of breast cancer treate d with breast conser ving therap y. PROCED URE: Multis lice imagin g of both breast s was perfor med in standa rd projec tions using Hologi c Seleni a Dimens ions tomosy nthesi s equipm ent (3D mammog ok) . 2D images were create d from the 3D datase t using C-View softwa re. The study was read with the assist ance of Comput er Aided Detect ion (CAD) softwa re. COMPAR STACI: This was compar ed with previo us mammog bev dated 03/16/21 , 0, 9 FINDIN GS: There are scatte red fibrog landul ar elemen ts in the breast s. There is no suspic ious mass or cluste r of calcif icatio ns. No mauri ectura l distor tion. There is stable scarri ng in the left breast . There is no suspic ious change . Arteri ovascu lar calcif icatio ns are noted in both breast s. IMPRES ILEANA: BI-RAD S catego ry 2, Benign . There is no eviden ce of malign shyann. Screen ing mammog bev are recomm ended in one year. Result s were mailed or given to the damari dalton. Interp reted By: Tony Gonzalez MD Electr onical ly Signed By: Tony Gonzalez MD on 022 11:[address] Radiology [facility] [address] [place] [address], [phone], 04/05/2022 11:57:18 04/11/20 23 04/11/2023 MAMMO , scree jodie, tomos ynthe sis, bilat eral, w/ CAD [address] [address] Damari dalton Name: FRANKIE dalton : [id number] Age: 87 years Patimann dalton 20 Orderi ng Provid er: JOS GALLEGOS EXAM DATE: 2022 EXAM: MG SCREEN ING [place] MAMMOG MERY INDICA TION: Screen ing. Histor y of breast cancer treate d with breast conser ving therap y. PROCED URE: Multis lice imagin g of both breast s was perfor med in standa rd projec tions using Hologi c Seleni a Dimens ions tomosy nthesi s equipm ent (3D mammog ok) . 2D images were create d from the 3D datase t using C-View softwa re. The study was read with the assist ance of Comput er Aided Detect ion (CAD) softwa re. COMPAR STACI: This was compar ed with previo us mammog bev dated 2021, 2020, 2019 FINDIN GS: There are scatte red fibrog landul ar elemen ts in the breast s. Stable scarri ng in the left breast . Vascul ar calcif icatio ns. No new suspic ious masses , calcif icatio ns, or mauri ectura l distor tion in either breast . IMPRES ILEANA: BI-RAD S catego ry 2, Benign . There is no eviden ce of malign shyann. Screen ing mammog bev are recomm ended in one year. Result s were mailed or given to the damari dalton. Interp reted By: Mya Tyson Electr onical ly Signed By: Mya Tyson on 023 1:[address] Radiology [facility] [address] [place] [address], [phone], 04/11/2023 13:30:50 Result Notes None recorded. Problems Name Problem SNOMED Code Status Onset Date Resolution Date Notes Provider Name and Address Organization Details Recorded Time Malignant tumor of breast 421548479 Active Rosendo krueger, [facility] 9 08:29:42 Malignant tumor of breast 666632341 Active 2018 SILVIO GALLEGOS MD 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 ? [address], [facility] [id number], Lana (id #[id number], : 1935) [facility] [address] [place] [address],??[place]?[address] Phone:?? Fax:?? Encounter Summary - Progress Note Date Printed: ?04/27/2023 Documents sent via fax will include the followingmessage: This fax may contain sensitive and confidential personal health information that is being sent for the sole use of the intended recipient. Unintended recipients are directed to securely destroy any materials received. You are hereby notified that the unauthorized disclosure or other unlawful use of this fax or any personal health information is prohibited. To the extent patient information contained in this fax is subject to 42 CFR Part 2, this regulation prohibits unauthorized disclosure of these records. If you received this fax in error, please visit [email or web address] to notify the sender and confirm that the information will be destroyed. If you do not have internet access, please call to notify the sender and confirm that the information will be destroyed. Thank you for your attention and cooperation. [ID:[id number]] Patient Margy Schillingta (87yo, F) #[id number] 1935 ?? Patient Demographics: Address [address] [place] [address] [address] [place] [address] ? Work Phone ?? Encounter Notes: Encounter Reason/Date Skin Cancer Follow-up 04/27/2023 - 10:15AM - [facility] History of Present IllnessEstablished Patient LOCATION: rash on abd DURATION: x 1 month SYMPTOMS: spreading, asx TREATMENTS: nystatin powder , anti itch cream no issues with bleeding, scarring, or healing Denies any other new, changing, or bleeding lesions, or other rashes, feels well , good mood and has no family history of melanoma. Review of SystemsAdditionally reports:COVID Questionnaire 1. Have you or anyone accompanying you today been diagnosed with CoVid-19 in the past 5 days?? Patient: NO Visitor:____ 2. In the last 3 days have you and/or anyone with you today had COVID symptoms? (cough, fever, muscle aches, loss of taste or smell, vomiting, diarrhea, headache, sore throat, or congestion/runny nose) Patient: NO Visitor:____ 3. Have you and/or anyone accompanying you today been in close contact with a person known to have COVID-19/Coronavirus in the past 5 days? Patient: NO Visitor:____ If answered YES to any of the questions above. Notify provider/service dept. of arrival. Await instructions from provider's office. ROS as noted in the HPI VitalsNone recorded Results/InterpretationsNone recorded Physical ExamWAIST UP EXAM Areas examined today and unremarkable for significant pathology, except as listed:General appearance, mood, hair, head/face/ears, eyelids/conjunctivae, lips, neck, right and left upper extremities and digits, chest/breasts/axillae, abdomen, back.PT DECLINED MORE EXTENSIVE EXAM EXCEPTIONS:1. Scars noted below are all doing well unless specified.2. Yellow/brown macules in exposed areas3. Dry and greasy, anthony/brown, stuck on, discrete papules on face4. Meta keratotic papules on face x 1, RUE x 2, LUE x 45. Splotchy redness on b/l lower breast crease, into upper abd crease with greasy scale Procedure DocumentationDestruction Premalignant Lesion(s):Destruction Premalignant Lesions: Following detailed verbal informed consent, 7 actinic keratosis was/were identified on the exam. Each were treated with liquid nitrogen cryotherapy. Assessment and Planf/up 6 months 1. 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 Lentiginosis-reassuranceRecommend ed Equate Ultra Sunscreen 30+ and sun protecting hats/rcyqnrrmQ85.4: Other melanin hyperpigmentation 3. Raised seborrheic keratosis-rosiadmfkxlO18.1: Other seborrheic keratosis 4. Actinic keratosis-LN x 7L57.0: Actinic keratosis 5. Intertrigo-Flaring on lower breast crease/ abd creasediscussed tx optionspt has been using Nystatin powder - hold for a few weeks until calmed downwill start HC 2.5 % BID x 2 piiqgR51.4: Erythema intertrigo hydrocortisone 2.5 % topical cream - APPLY A THIN LAYER TO THE AFFECTED AREA(S) BY TOPICAL ROUTE 2 TIMES PER DAY x 2 WEEKS THEN TAPER ? Qty: (1)?30 gram tube ? Refills: 1 ? Pharmacy: [id number] Discussion NotesEducation:We discussed the potential diagnostic options, options for further evaluation and treatments, and the risks and benefits of each. Return to Office WILLY DAWN MD for DERMATOLOGY VISIT at [facility] on 04/28/2024 at 09:30 AM Patient Medical History: Allergies List Allergies not reviewed (last reviewed 07/25/2022) NKDA Medications Reviewed Medications NameDate Source anastrozole 1 mg tabletTAKE 1 TABLET BY MOUTH ONCE DAILY03/26/23?filled surescripts celecoxib 100 mg capsuleTAKE 1 CAPSULE BY MOUTH TWICE DAILY04/04/23?filled surescripts cephALEXin 500 mg capsuleTAKE 1 CAPSULE BY MOUTH THREE TIMES DAILY FOR 10 DAYS04/23/23?filled surescripts clobetasoL 0.05 % topical creamAPPLY CREAM TOPICALLY TO AFFECTED AREA TWICE DAILY03/23/23?filled surescripts cyanocobalamin (vit B-12) 1,000 mcg tabletTAKE 1 TABLET BY MOUTH ONCE DAILY12/12/20?filled surescripts erythromycin 5 mg/gram (0.5 %) eye ointmentAPPLY 1/4 INCH STRIP IN INJECTED EYE (FOR USE AFTER INJECTION)02/28/23?filled surescripts fluconazole 150 mg tabletTAKE 1 TABLET BY MOUTH ONCE DAILY FOR 5 DAYS04/23/23?filled surescripts hydrocortisone 2.5 % topical creamAPPLY A THIN LAYER TO THE AFFECTED AREA(S) BY TOPICAL ROUTE 2 TIMES PER DAY x 2 WEEKS THEN TAPER04/27/23?prescribed WILLY DAWN MD levoFLOXacin 500 mg tabletTAKE 1 TABLET BY MOUTH ONCE DAILY11/12/22?filled surescripts LORazepam 0.5 mg tabletTAKE 1 TABLET BY MOUTH TWICE DAILY NEEDED FOR 30 DAYS04/12/23?filled surescripts nystatin 100,000 unit/gram topical powderAPPLY POWDER TOPICALLY TWICE DAILY FOR 10 DAYS04/23/23?filled surescripts omeprazole 20 mg capsule,delayed releaseTAKE 1 CAPSULE BY MOUTH ONCE DAILY 30 MINUTES BEFORE MORNING MEAL01/25/23?filled surescripts omeprazole 20 mg tablet,delayed releaseTAKE 1 TABLET BY MOUTH ONCE DAILY 30 MINUTES BEFORE MORNING MEAL12/06/22?filled surescripts ondansetron HCL 4 mg tabletTAKE 1 TABLET BY MOUTH EVERY 8 HOURS NEEDED FOR URZAIJ76/02/23?filled surescripts prednisoLONE acetate 1 % eye drops,suspensionINSTILL 1 DROP IN INJECTED EYE NEEDED (FOR USE AFTER INJECTION) DO NOT USE AT HOME02/28/23?filled surescripts PreserVision AREDS1 daily04/05/22?entered Teri Saez Family HistoryFamily History not reviewed (last reviewed 04/03/2019) Mother - Malignant tumor of lung Brother - Neoplasm of brain Father - Cerebrovascular accident Past Medical HistoryPast Medical History not reviewed (last reviewed 07/25/2022) Notes: LEG CRAMPS , LIGHTHEADED, BREAST CA LEFT Vaccine HistoryReviewed Vaccines Vaccine Type Date Amt. Route Site NDC Lot??# Mfr. Exp. Date VIS VIS Given [employer] Influenza influenza, injectable, quadrivalent 05/26/19 Electronically Signed by: WILLY DAWN MD SILVIO GALLEGOS MD [address] [place] [address], [phone], [facility] 05/02/2023 08:04:33 Procedures Surgical History Date Name Laterality Status Provider Name and Address Organization Details Recorded Time ligation of fallopian tube completed [facility] 04/11/2019 12:54:19 Lumpectomy completed [facility] 04/11/2019 12:54:23 Imaging Results Imaging Date Name Status LastModified by Organiz ation Details LastModified Time 03/10/2020 MAMMO, screening, tomosynthe sis, bilateral, w/ CAD completed [address], [phone], 03/10/2020 13:27:08 03/16/2021 MAMMO, screening, tomosynthe sis, bilateral, w/ CAD completed [address], [address], 03/16/2021 12:06:38 04/05/2022 MAMMO, screening, tomosynthe sis, bilateral, w/ CAD completed [address], [address], 04/05/2022 11:57:18 04/11/2023 MAMMO, screening, tomosynthe sis, bilateral, w/ CAD completed [address], [address], 04/11/2023 13:30:50 Procedure Notes None recorded. Medical Equipment None Reported. Allergies No known drug allergies Medications Name Sig Start Date Stop Date Status Note LastModified by Organization Details LastModified Time methocarbam ol 500 mg tablet Take 1 tablet as needed by oral route. 06/06 completed Not Available Not Available Not Available anastrozole 1 mg tablet TAKE 1 TABLET BY MOUTH ONCE DAILY active Not Available Not Available No t Available nitrofurant oin macrocrysta l 50 mg capsule TAKE 1 CAPSULE BY MOUTH TWICE DAILY WITH FOOD FOR 10 DAYS 03/16 completed Not Available Not Available Not Available azithromyci n 250 mg tablet TAKE 2 TABLETS BY MOUTH ON DAY 1, AND THEN TAKE 1 TABLET BY MOUTH ONCE A DAY ON DAY 2 THROUGH DAY 5 active Not Available Not Available No t Available fluconazole 150 mg tablet TAKE 1 TABLET BY MOUTH ONCE DAILY FOR 5 DAYS active Not Available Not Available No t Available benzonatate 200 mg capsule TAKE 1 CAPSULE BY MOUTH THREE TIMES DAILY FOR 10 DAYS active Not Available Not Available No t Available hydrocodone 5 mg-acetamin ophen 325 mg tablet as needed 06/06 completed Not Available Not Available Not Available ondansetron HCl 4 mg tablet TAKE 1 TABLET BY MOUTH THREE TIMES DAILY FOR 10 DAYS active Not Available Not Available No t Available clobetasol 0.05 % topical cream APPLY CREAM TOPICALLY TO AFFECTED AREA DAILY NEEDED DIRECTED FOR ITCHING active Not Available Not Available No t Available cyanocobala min (vit B-12) 1,000 mcg tablet TAKE 1 TABLET BY MOUTH ONCE DAILY active Not Available Not Available No t Available acetaminoph en 300 mg-codeine 30 mg tablet TAKE 1 TABLET BY MOUTH EVERY 4 TO 6 HOURS NEEDED FOR 10 DAYS 04/11 completed Not Available Not Available Not Available sulfamethox azole 800 mg-trimetho prim 160 mg tablet TAKE 1 TABLET BY MOUTH TWICE DAILY FOR 7 DAYS active Not Available Not Available No t Available lidocaine-p rilocaine 2.5 %-2.5 % topical cream 04/11 completed Not Available Not Available Not Available prednisolon e acetate 1 % eye drops,suspe nsion INSTILL 1 DROP IN INJECTED EYE NEEDED (FOR USE AFTER INJECTION ) DO NOT USE AT HOME active Not Available Not Available No t Available lorazepam 0.5 mg tablet TAKE 1 TABLET BY MOUTH TWICE DAILY NEEDED FOR 30 DAYS active Not Available Not Available No t Available methocarbam ol 750 mg tablet TAKE 1 TABLET BY MOUTH AT BEDTIME TO PREVENT LEG CRAMPS 03/16 completed Not Available Not Available Not Available Naphcon-A 0.025 %-0.3 % eye drops 04/11 completed Not Available Not Available Not Available cephalexin 500 mg capsule TAKE 2 CAPSULES BY MOUTH TWICE DAILY FOR 5 DAYS active Not Available Not Available No t Available erythromyci n 5 mg/gram (0.5 %) eye ointment APPLY 1/4 INCH STRIP IN INJECTED EYE (FOR USE AFTER INJECTION ) active Not Available Not Available No t Available omeprazole 20 mg capsule,del ayed release TAKE 1 CAPSULE BY MOUTH ONCE DAILY 30 MINUTES BEFORE MORNING MEAL active Not Available Not Available No t Available hydrocortis one 2.5 % topical cream APPLY A THIN LAYER OF CREAM TOPICALLY TO THE AFFECTED AREA(S) TWICE DAILY FOR 2 WEEKS THEN TAPER active Not Available Not Available No t Available mupirocin 2 % topical ointment APPLY OINTMENT TOPICALLY TWICE DAILY active Not Available Not Available No t Available nystatin 100,000 unit/gram topical powder APPLY POWDER TOPICALLY TWICE DAILY FOR 10 DAYS active Not Available Not Available No t Available levofloxaci n 500 mg tablet TAKE 1 TABLET BY MOUTH ONCE DAILY 04/11 completed Not Available Not Available Not Available celecoxib 100 mg capsule TAKE 1 CAPSULE BY MOUTH TWICE DAILY active Not Available Not Available No t Available clobetasol- emollient 0.05 % topical cream APPLY CREAM TOPICALLY TO AFFECTED AREA TWICE DAILY active Not Available Not Available No t Available Premarin 0.625 mg/gram vaginal cream Insert 0.5 applicato rsful every day by vaginal route. 04/11 completed Not Available Not Available Not Available nitrofurant oin monohydrate /macrocryst als 100 mg capsule TAKE 1 CAPSULE BY MOUTH EVERY 12 HOURS active Not Available Not Available No t Available PreserVisio n AREDS 1 daily active Not Available Not Available Not Available cholecalcif breezy (vitamin D3) 1,250 mcg (50,000 unit) capsule TAKE 1 CAPSULE BY MOUTH TWICE A WEEK active Not Available Not Available No t Available omeprazole 20 mg tablet,cindy yed release TAKE 1 TABLET BY MOUTH ONCE DAILY 30 MINUTES BEFORE MORNING MEAL 04/11 completed Not Available Not Available Not Available Vitamin B12 Daily 03/16 completed Not Available Not Available Not Available Vitals Date Recorded Body temperature Provider Name a nd Address Organization Details Last Updated DateTime 03/10/2020 97.1 [degF] Marc Menchaca [facility] 0 03/10/2020 10:49:34 Date Recorded Body height Body mass index (BMI) Body weight Pain severity - 0-10 verbal numeric rating [Score] - Reported Oxygen saturation Oxygen saturation in Arterial blood by Pulse oximetry Heart rate Systolic blood pressure Diastolic blood pressure Provider Name and Address Organization Details Last Updated DateTime 0 162.56 cm 23.3 kg/m2 65928.5 6 g 0 97 % 97 % 72 /min 138 mm[Hg] 90 mm[Hg] Simona Brand [facility] 0 11:06:47 Date Recorded Body height Body mass index (BMI) Body weight Pain severity - 0-10 verbal numeric rating [Score] - Reported Oxygen saturation Oxygen saturation in Arterial blood by Pulse oximetry Heart rate Body temperature Systolic blood pressure Diastolic blood pressure Provider Name and Address Organization Details Last Updated DateTime 1 162.56 cm 23.1 kg/m2 47862.1 8 g 0 97 % 97 % 71 /min 96.9 [degF] 146 mm[Hg] 92 mm[Hg] Simona Brand [facility] 1 10:08:24 Date Recorded Body height Body mass index (BMI) Body weight Pain severity - 0-10 verbal numeric rating [Score] - Reported Body temperature Heart rate Oxygen saturation Oxygen saturation in Arterial blood by Pulse oximetry Systolic blood pressure Diastolic blood pressure Provider Name and Address Organization Details Last Updated DateTime 1 162.56 cm 23.7 kg/m2 65051.4 5 g 0 97.5 [degF] 72 /min 96 % 96 % 146 mm[Hg] 93 mm[Hg] Simona Brand [facility] 1 13:00:22 Date Recorded Body height Body mass index (BMI) Body weight Body temperature Heart rate Oxygen saturation Oxygen saturation in Arterial blood by Pulse oximetry Systolic blood pressure Diastolic blood pressure Provider Name and Address Organization Details Last Updated DateTime 2 162.56 cm 22.5 kg/m2 48983.3 5 g 97.8 [degF] 81 /min 99 % 99 % 133 mm[Hg] 81 mm[Hg] Yaneth Muhammad [facility] 2 12:37:11 Date Recorded Pain severity - 0-10 verbal numeric rating [Score] - Reported Body weight Body mass index (BMI) Body height Body temperature Heart rate Oxygen saturation Oxygen saturation in Arterial blood by Pulse oximetry Systolic blood pressure Diastolic blood pressure Provider Name and Address Organization Details Last Updated DateTime 3 0 42111.2 7 g 22 kg/m2 162.56 cm 97.3 [degF] 81 /min 95 % 95 % 143 mm[Hg] 87 mm[Hg] Birgit coleman [facility] 3 13:46:40 Social History Question Answer Notes LastModified by Retail Infoizat ion Details LastModified Time Tobacco Smoking Status Never Smoker Simona Brand [facility] 04/11/2019 12:53:45 How Much Tobacco Do You Chew? None [email or web address] Information not available 04/11/2019 Have You Been To An Area Known To Be High Risk For COVID-19? No Information not available 03/10/2020 Live Alone Or With Others? Alone [email or web address] Information not available 04/11/2019 Education Level High School [email or web address] Informat ion not available 04/11/2019 Exposure To Smoke No [email or web address] Informa tion not available 04/11/2019 Marital Status [email or web address] Informatio n not available 04/11/2019 What Was The Date Of Your Most Recent Tobacco Screening? 04/11/2023 [email or web address] Information not available 04/11/2023 How Many Children Do You Have? 4 Information not available 04/11/2019 What Is Your Relationship Status? [email or web address] Information not available 03/16/2021 How Much Tobacco Do You Smoke? No [email or web address] Information not available 04/11/2019 Has Tobacco Cessation Counseling Been Provided? No [email or web address] Information not available 03/16/2021 How Many Years Have You Smoked Tobacco? 0 Information not available 06/06/2019 Sex: Unknown Functional Status Question Answer Note LastModified by Organizat ion Details LastModified Time Do you use any illicit or recreational drugs? No [email or web address] Information not available 03/16/2021 Do you or have you ever used any other forms of tobacco or nicotine? No [email or web address] Information not available 03/16/2021 What is your level of alcohol consumption? None [email or web address] Information not available 04/11/2019 Do you or have you ever used smokeless tobacco? Never used [email or web address] tobacco Information not available 04/11/2019 What is your occupation? retired Information not available 04/11/2019 Do you or have you ever used e-cigarettes or vape? Never used electronic cigarettes Information not available 06/06/2019 Mental Status None recorded. Family History Relationship Description Onset Age of this Age Resolved Age Notes LastModified by Organization Details LastModified Time Mother Family history of malignant neoplasm 70 Not available 2018 12:53:08 Father Family history of stroke [email or web address] Not available 2018 12:53:18 Medical History Condition Response Other Gynecological HistoryNo gynecological history recorded. Obstetrics History GPAL:G 0 P 0 0 0 0 Immunizations Vaccine Type Date Status Note Provider Nam e and Address Organization Details Recorded Time Influenza, split virus, quadrivalent, preservative 9 completed Alysa Swanson [facility] 06/06/2019 10:12:23 Past Encounters Encounter ID Performer Location Encounter Start Date Encounter Closed Date Diagnosis/Indication Diagnosis SNOMED-CT Code Diagnosis ICD10 Code Diagnosis Note [id number] TONY BRUNNER JR, MD GENERAL SURGERY [facility] [address],[facility] [address] [place] [address] 03/04/2019 11:56:25 03/06/2019 08:29:07 [id number] TONY BRUNNER JR, MD SURGERY SCHEDULE [address] [place] [address] 03/26/2019 10:01:47 03/26/2019 10:23:40 [id number] TONY BRUNNER JR, MD GENERAL SURGERY [facility] [address],[facility] [address] [place] [address] 04/03/2019 09:45:05 04/04/2019 09:12:05 [id number] STERLING SKINNER MD RADIATION THERAPY [place] [address] [place] [address] 04/11/2019 08:36:40 04/11/2019 09:23:13 [id number] SILVIO GALLEGOS MD [facility] [address] [place] [address] 04/11/2019 12:12:33 04/11/2019 13:34:19 Malignant tumor of breast 063894845 C50.615 [id number] SILVIO GALLEGOS MD [facility] [address] [place] [address] 06/06/2019 09:58:09 06/06/2019 10:47:34 Malignant tumor of breast 466597460 C50.442 [id number] SILVIO GALLEGOS MD [facility] [address] [place] [address] 03/10/2020 10:45:07 03/10/2020 11:54:17 Malignant tumor of breast 352301758 C50.159 [id number] SILVIO GALLEGOS MD [facility] CL[facility] [address] [place] [address] 09/08/2020 09:55:46 09/08/2020 11:09:53 Malignant tumor of breast 400519878 C50.400 [id number] SILVIO GALLEGOS MD [facility] CL[facility] [address] [place] [address] 03/16/2021 12:50:46 03/16/2021 13:18:18 Malignant tumor of breast 224319973 C50.919 [id number] SILVIO GALLEGOS MD [facility] [address] [place] [address] 04/05/2022 12:22:41 04/05/2022 14:44:06 Malignant tumor of breast 392159803 C50.919 [id number] IWLLY DAWN MD [facility] [address] [place] [address] 04/11/2022 13:44:08 04/11/2022 14:24:08 [id number] MD [facility] [address] [place] [address] 04/25/2022 12:59:10 04/25/2022 13:56:31 [id number] MD [facility] [address] [place] [address] 07/25/2022 13:41:31 07/25/2022 14:07:08 [id number] SILVIO GALLEGOS MD [facility] [address] [place] [address] 04/11/2023 11:55:58 04/11/2023 14:17:42 Malignant tumor of breast [id number] C50.919 [id number] WILLY DAWN MD [facility] [address] [place] [address] 04/27/2023 10:00:34 04/27/2023 10:19:52 [id number] WILLY DAWN MD [facility] [address] [place] [address] 04/28/2024 09:24:22 04/28/2024 11:25:13 Health Concerns Section Related Observation LastModified by Organization Detai ls LastModified Time None Recorded Concern Status LastModified by Organization Details LastModified Time None Recorded Advance Directives Directive None Recorded Payers Insurance Date Sequence Insurance Name Policy Number Policy Moody Covered Member ID Moody Member ID Guarantor Name 04/25/2024 1 [employer] (MEDICARE REPLACEMENT/A DVANTAGE - PPO) Lana Schilling [id number] Lana Schilling Notes Date Note Type Note Provider Name and Address Organization Details Recorded Time 0 text/html HPIReported bypatient.patient accompanied by:patient accompanied by family Advanced Directives / BioBank AuthorizationsAdvanced Directives? NO Dischargedischarge disposition stable; patient accompanied by child Distress ScreeningHas the distress screening been completed in the last 45 days? NO; Distress level 5 Practical Problemsno practical problems Family Problemsno family problems Emotional Problemsnervousness;sadness ;worry Spiritual/Religiousspiritua l/anglican problems? NO Physical Problemsconstipation;eating /ingestion problem;memory/concentratio n problems Nutrition ScreeningNutrition Screening YES; Nutrition counseling last 6 months? NO; Nutrition Protocol implemented? 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 She is status post partial mastectomy. Given her advanced age and the low-grade tumor, we did not feel like she would benefit from radiation. She has been on the drug, anastrozole and really tolerated that well. She has had mammograms and labs today and all this is good. She is clinically doing well except for where she kind of hit her leg and kind of bruised it up. SILVIO GALLEGOS MD [address] [place] [address], [phone], [facility] 03/10/2020 15:39:56 1 text/html HPIReported bypatient.Advanced Directives / BioBank AuthorizationsAdvanced Directives? NO Dischargedischarge mode ambulatory; discharge disposition stable Distress ScreeningHas the distress screening been completed in the last 45 days? NO; Distress level 5 Practical Problemsno practical problems Family Problemsno family problems Emotional Problemsnervousness;worry Spiritual/Religiousspiritua l/anglican problems? NO Physical Problemseating/ingestion problem;memory/concentratio n problems;sleep issues Nutrition ScreeningNutrition Screening YES; Nutrition counseling last 6 months? NO; Nutrition Protocol implemented? 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 She is status post partial mastectomy. Given her advanced age and the low-grade tumor, we did not feel like she would benefit from radiation. She has been on the drug, anastrozole and really tolerated that well. She has had mammograms and labs today and all this is good. SILVIO GALLEGOS MD [address] [place] [address], [phone], [facility] 10/05/2020 14:49:38 1 text/html HPIReported bypatient.Advanced Directives / BioBank AuthorizationsAdvanced Directives? NO Dischargedischarge mode ambulatory; discharge disposition stable Distress ScreeningHas the distress screening been completed in the last 45 days? NO; Distress level 5 Practical Problemsno practical problems Family Problemsno family problems Emotional Problemsnervousness;worry Spiritual/Religiousspiritua l/anglican problems? NO Physical Problemsmemory/concentratio n problems; Nausea Nutrition ScreeningNutrition Screening YES; Nutrition counseling last 6 months? NO; Nutrition Protocol implemented? 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 She is status post partial mastectomy. Given her advanced age and the low-grade tumor, we did not feel like she would benefit from radiation. She has been on the drug, anastrozole and really tolerated that well. She has had mammograms and labs today and all this is good. This is an 85-year-old female, now diagnosed with breast cancer in March 2019. She is more than 2 years out. She had a partial mastectomy in the left breast and had a very low-grade tumor. She had a discussion with Radiation Oncology and they did not pursue radiation. She has been on anastrozole and tolerated it quite well. She says today she is doing well except for her. She has got a lot of memory issues. There is a little bit of delay in lab work, but her mammograms is quite good. SILVIO GALLEGOS MD [address] [place] [address], [phone], [facility] 03/17/2021 06:51:34 2 text/html HPIReported bypatient.Advanced Directives / BioBank AuthorizationsAdvanced Directives? NO Dischargedischarge mode ambulatory; discharge disposition stable Distress ScreeningHas the distress screening been completed in the last 45 days? NO; Distress level 5 Practical Problemsno practical problems Family Problemsno family problems Emotional Problemsno emotional problems Spiritual/Religiousspiritua l/anglican problems? NO Physical Problemsfatigue Nutrition ScreeningNutrition Screening YES; Nutrition counseling last 6 months? NO; Nutrition Protocol implemented? NO This is an 86-year-old female, now more than 3 years out from diagnosis of a very early stage, ER positive breast cancer on the left. She had a partial mastectomy and radiation ____. Her initial cancer was [id number], ER positive, HER-2 negative, mucinous cancer, low grade. Clinically, she returns today 3 years out. She continues on anastrozole and is in a great mood. She has had her mammogram done, which is unremarkable and originally we were going to do lab work on her, but that was not able to get done. She gets routine labs through Dr. Delgado. SILVIO GALLEGOS MD [address] [place] [address], [phone], [facility] 04/13/2022 08:04:39 3 text/html HPIReported bypatient.Advanced Directives / BioBank AuthorizationsAdvanced Directives? NO Dischargedischarge mode ambulatory; discharge disposition stable Distress ScreeningHas the distress screening been completed in the last 45 days? NO; Distress level 5 Practical Problemsno practical problems Family Problemsno family problems Emotional Problemsno emotional problems Spiritual/Religiousspiritua l/anglican problems? NO Physical Problemsfatigue Nutrition ScreeningNutrition Screening YES; Nutrition counseling last 6 months? NO; Nutrition Protocol implemented? NO This is an 87-year-old female originally seen by me in March 2019. She is status post a left-sided partial mastectomy for an early stage breast cancer, quadrant unspecified. She has a T1c, N0, M0 ER positive, HER-2 negative low-grade mucinous cancer. Based on age, we would not give her adjuvant radiation. We discussed adjuvant hormonal therapy. She is in good shape and have a projective fairly long life based on statistics and her overall performance status, placed on adjuvant hormonal therapy with the drug anastrozole, which she has done quite well alone. She completed 4 years worth of therapy and is doing well. She does return today. Her main complaint, she is having some bit of a what appears to be a rash underneath her breast and have recently been putting some antibiotic cream on it. She was little bit confused about where to get her mammogram, which we have now gotten today and is a BI-RADS 2, which is quite good. SILVIO GALLEGOS MD [facility] [place], [address], [facility] 04/12/2023 08:42:45 OBGyn Episode No OBEpisode recorded.
--- OUTSIDE RECORDS SUMMARY | 2024-12-24 11:35 | XMS_ITS | Data Portability ---
Author Organization [facility], [facility] [place] Address [address] [place] [address] Care Team Providers Care Range Operator Name Role Phone TONY BRUNNER JR Referring Provider STERLING BATISTA Radiation Oncologist Assessment Encounter Date Assessment Date Assessment LastModified by Organization Details LastModified Time 04/11/2019 04/11/2019 Mrs. Jennings is an 83-year-old woman with a diagnosis of stage [id number] left upper outer quadrant mucinous breast cancer resected with a close 1 mm lateral margin and benign sentinel nodes. I reviewed the national comprehensive cancer network guidelines which recommended adjuvant radiation therapy but this can be omitted in patients over 70 for node-negative T1 tumors may be candidate for adjuvant hormonal therapy. She'll be seeing Dr. Gallegos this afternoon. I described a course of adjuvant hypo-fractionate d radiation over 4 weeks and the potential side effects but I do not feel compelled that she shouldn't have to undergo this because of the relatively low risk of recurrence at her advanced age and mucinous type tumor. However, she did have a close margin therefore adjuvant radiation is not unreasonable. After much discussion she is happy to omit radiation and continue with observation and annual mammograms. She understands that omission of radiation does not shorten survival but only has a slight increase in risk of local recurrence should she have a longer life expectancy at her advanced age. She was not given a follow-up appointment with me but was encouraged to continue with her annual mammograms. [email or web address] Not available 04/11/2019 09:20:28 Plan of Treatment Reminders Order Date Submit Date Provider Last Modified By Organization Details Last Modified Time Details Appointments [facility] 2024 11:00A M WILLY DAWN MD Not available Not available Not available Lab None recorded. Referral None recorded. Procedures None recorded. Surgeries None recorded. Imaging None recorded. Medication Orders None recorded. Patient TargetsNo targets recorded. Patient Instructions Encounter Date Encounter Id Patient Instructions Last Modified By Organization Details Last Modified Time 04/11/2019 [id number] eating healthy foods: care instructions rayna Not available 04/11/2019 09:17:18 Reason for Referral None Reported. Results Created Date Observation Date Name Description Value Unit Range Abnormal Flag Note LastModifiedBy Organization Detail LastModifiedTime 04/11/20 19 03/26/2019 biops y of breas t; james wang , needl e core, using imagi ng román cruz (PROC ) No observ ation record ed. [facility] Not Available 2018 08:44:23 Result Notes None recorded. Problems Name Problem SNOMED Code Status Onset Date Resolution Date Notes Provider Name and Address Organization Details Recorded Time Malignan t neoplast ic disease 487613953 Completed 201804/11/2019 STERLING TONG MD [address], [place], [address], [facility] 9 09:17:22 Infiltra ting ductal carcinom a of upper outer quadrant of left female breast [id number] 03624 Active [address], [place], [address], [facility] 9 09:17:17 Problem Notes None recorded. Procedures Surgical History Date Name Laterality Status Provider Name and Address Organization Details Recorded Time 9 Partial mastectomy completed [facility] 04/07/2019 09:08:19 biopsy completed [facility] 04/07/2019 08:52:25 Imaging Results Imaging Date Name Status LastModified by Organiz ation Details LastModified Time 03/26/2019 biopsy of breast; percutaneous, needle core, using imaging guidance (PROC) completed [facility] Information not available 04/11/2019 08:44:23 Procedure Notes None recorded. Medical Equipment None Reported. Allergies No known drug allergies Medications Name Sig Start Date Stop Date Status Note LastModified by Organization Details LastModified Time anastrozole 1 mg tablet TAKE 1 TABLET BY MOUTH ONCE DAILY active Not Available Not Available No t Available nitrofurant oin macrocrysta l 50 mg capsule TAKE 1 CAPSULE BY MOUTH TWICE DAILY WITH FOOD FOR 10 DAYS active Not Available Not Available No t Available azithromyci n 250 mg tablet TAKE [...] hydrocodone 5 mg-acetamin ophen 325 mg tablet prn active Not Available Not Available No t Available ondansetron HCl 4 mg tablet TAKE [...] TO 6 HOURS NEEDED FOR 10 DAYS active Not Available Not Available No t Available sulfamethox azole 800 mg-trimetho prim 160 [...] MOUTH AT BEDTIME TO PREVENT LEG CRAMPS active Not Available Not Available No t Available Naphcon-A 0.025 %-0.3 % eye drops as directed 04/11 completed Not Available Not Available Not [...] Not Available Not Available No t Available celecoxib 100 mg capsule TAKE 1 [...] Not Available Not Available No t Available cholecalcif breezy (vitamin D3) 1,250 mcg (50,000 unit) capsule TAKE 1 CAPSULE BY MOUTH TWICE A WEEK active Not Available Not Available No t Available omeprazole 20 mg tablet,cindy yed release TAKE 1 TABLET BY MOUTH ONCE DAILY 30 MINUTES BEFORE MORNING MEAL active Not Available Not Available No t Available ICaps AREDS active Not Available Not A vailable Not Available Vitals Date Recorded Body weight Body mass index (BMI) Body height Body temperature Pain severity - 0-10 verbal numeric rating [Score] - Reported Oxygen saturation Oxygen saturation in Arterial blood by Pulse oximetry Heart rate Systolic blood pressure Diastolic blood pressure Provider Name and Address Organization Details Last Updated DateTime 9 76444.7 9 g 22.8 kg/m2 162.56 cm 97.8 [degF] 0 93 % 93 % 72 /min 130 mm[Hg] 82 mm[Hg] Lucrecia Gillespie [facility] 08:56:00 Social History Question Answer Notes LastModified by Organizat ion Details LastModified Time Tobacco Smoking Status Former Smoker Jossy krueger, [facility] 04/07/2019 08:50:36 How Much Tobacco Do You Chew? None [email or web address] Information not available 04/07/2019 Sex: Unknown Functional Status Question Answer Note LastModified by Organizat ion Details LastModified Time Do you or have you ever used smokeless tobacco? Never used smokeless tobacco [email or web address] Information not available 04/07/2019 Do you or have you ever used e-cigarettes or vape? Never used electronic cigarettes Information not available 04/07/2019 Mental Status None recorded. Family History Relationship Description Onset Age of this Age Resolved Age Notes LastModified by Organization Details LastModified Time Brother Malignant neoplastic disease brain [email or web address] Not available 04/07 08:49:58 Mother Malignant neoplastic disease lung [email or web address] Not available 04/07 08:49:58 Father Cerebrovascu lar accident [email or web address] Not available 08:50:28 Medical History Condition Response Arthritis Y Mental Illness Y Breast Cancer Y Gynecological HistoryNo gynecological history recorded. Obstetrics History GPAL:G 0 P 0 0 0 0 Past Encounters Encounter ID Performer Location Encounter Start Date Encounter Closed Date Diagnosis/Indication Diagnosis SNOMED-CT Code Diagnosis ICD10 Code Diagnosis Note [id number] TONY BRUNNER JR, MD [facility] [address] [place] [address] 03/04/2019 11:56:25 03/06/2019 08:29:07 [id number] TONY BRUNNER JR, MD SURGERY SCHEDULE [address] [place] [address] 03/26/2019 10:01:47 03/26/2019 10:23:40 [id number] TONY BRUNNER JR, MD [facility] [address] [place] [address] 04/03/2019 09:45:05 04/04/2019 09:12:05 [id number] STERLING SKINNER MD [facility] [place] [address] [place] [address] 04/11/2019 08:36:40 04/11/2019 09:23:13 Infiltrating ductal carcinoma of upper outer quadrant of left female breast [id number] 879162 C50.324 [id number] SILVIO GALLEGOS MD [facility] [address] [place] [address] 04/11/2019 12:12:33 04/11/2019 13:34:19 [id number] SILVIO GALLEGOS MD [facility] [address] [place] [address] 06/06/2019 09:58:09 06/06/2019 10:47:34 [id number] SILVIO GALLEGOS MD [facility] [address] [place] [address] 03/10/2020 10:45:07 03/10/2020 11:54:17 [id number] SILVIO GALLEGOS MD [facility] [address] [place] [address] 09/08/2020 09:55:46 09/08/2020 11:09:53 [id number] SILVIO GALLEGOS MD [facility] [address] [place] [address] 03/16/2021 12:50:46 03/16/2021 13:18:18 [id number] SILVIO GALLEGOS MD [facility] [address] [place] [address] 04/05/2022 12:22:41 04/05/2022 14:44:06 [id number] WILLY DAWN MD [facility] [address] [place] [address] 04/11/2022 13:44:08 04/11/2022 14:24:08 [id number] WILLY DAWN MD [facility] [address] [place] [address] 04/25/2022 12:59:10 04/25/2022 13:56:31 [id number] WILLY DAWN MD [facility] [address] [place] [address] 07/25/2022 13:41:31 07/25/2022 14:07:08 [id number] SILVIO GALLEGOS MD [facility] [address] [place] [address] 04/11/2023 11:55:58 04/11/2023 14:17:42 [id number] MD [facility] [address] [place] [address] 04/27/2023 10:00:34 04/27/2023 10:19:52 [id number] MD [facility] [address] [place] [address] 04/28/2024 09:24:22 04/28/2024 11:25:13 Health Concerns Section Related Observation LastModified by Organization Detai ls LastModified Time None Recorded Concern Status LastModified by Organization Details LastModified Time None Recorded Advance Directives Directive None Recorded Payers Insurance Date Sequence Insurance Name Policy Number Policy Moody Covered Member ID Moody Member ID Guarantor Name 04/25/2024 1 [employer] (MEDICARE REPLACEMENT/A DVANTAGE - PPO) Lana Jennings [id number] Lana Jennings Notes Date Note Type Note Provider Name and Address Organization Details Recorded Time 04/11/2019 text/html Ms. Jennings is an 83-year-old woman with newly diagnosed breast cancer. Her mammogram and pathology results are as follows: 03/04/19 mammogram 1. The biopsy-proven malignancy in the axillary tail region of the left breast contains a biopsy marker and measures approximately 30 x 17 x 16 mm on post-procedure mammograms. 2. There is no evidence of multifocal disease. There are no suspicious findings in the contralateral breast. 3. Previous ultrasound of the left axilla demonstrated no evidence of axillary lymphadenopathy. 03/26/19 Diagnosis: A) Left axillary sentinel lymph node: No tumor identified (0/1) lymph node. B) Left axillary sentinel lymph node: No tumor identified (0/2) lymph nodes. C) Left axillary sentinel lymph node: No tumor identified (0/1) lymph node. D) Left partial mastectomy: 2.0 cm invasive ductal carcinoma with mucinous and cribriform features, intermediate grade (tubular score 3; nuclear pleomorphism 2; mitotic activity 1). Ductal carcinoma in situ (DCIS), cribriform type, intermediate grade. Margins uninvolved by invasive carcinoma and DCIS. Closest (lateral) margin less than 1mm (millimeter) from invasive carcinoma and DCIS. E) Additional medial superior half of biopsy cavity: No tumor identified. She is recovering well from her partial mastectomy with sentinel node biopsy. Dr. Brunner has referred her to me to discuss the role of radiation in her care. In addition she has an appointment later today with Dr. Gallegos. STERLING BATISTA MD [address], [place], [address], [facility] 04/11/2019 09:20:59 OBGyn Episode No OBEpisode recorded.
== END 2024-12-24 23:59 | disposition home or self-care (01) ==
LOC: RAD 11:33
PROVIDERS: PCP Family Medicine; Visit Provider Nurse Practitioner
DX: R09.89 Other specified symptoms and signs involving the circulatory and respiratory systems (principal); R05.9 Cough, unspecified
CPT/HCPCS: 71046

== ENCOUNTER 2025-03-16 17:47 | Emergency (ER) | payer MEDICARE, SELFPAY ==
--- OUTSIDE RECORDS SUMMARY | 2025-02-16 09:00 | XMS_ITS | Encounter Summary ---
Author Organization [facility] Address [address] [place] [address] Care Team Providers Care Metal Fabrication Supervisor Name Role Phone Ynes Denny APRN Primary Care Provider [phone] Reason for Referral * Surgical (Routine) - Canceled Specialty Diagnoses / Procedures Referred By Vance t Referred To Contact Diagnoses Sacroiliac joint pain Procedures External Facility Surgical/Procedural Request Radha Rudolph PA-C [address] [place] [address] Phone: tel: fax: [facility] AT [address] [place] [address] Phone: tel: fax: Referral ID Status Reason Start Date Expiration Date V isits Requested Visits Authorized [id number] Canceled Continuity of Care 02/16/2025 05/18/2026 1 1 Encounter Details Date Type Department Care Team (Late st Contact Info) Description 02/16/2025 9:00 AM EDT Office Visit [facility] [address] [facility] [address] [place] [address] Radha Rudolph PA-C [address] [place] [address] Sacroiliac joint pain (Primary Dx); Lumbosacral spondylosis without myelopathy Social History Tobacco Use Types Packs/Day Years Used Date Smoking Tobacco: Never Smokeless Tobacco: Never Alcohol Use Standard Drinks/Week Comments Never 0 (1 standard drink = 0.6 oz pur e alcohol) PHQ-2 Answer Date Recorded Patient Health Questionnaire-2 Score 0 02/16/2025 Comments Unknown Sex and Gender Information Value Date Recorded Sex Assigned at Not on file Legal Sex Female 11:07 AM EDT Gender Identity Not on file Sexual Orientation Not on file documented as of this encounter Last Filed Vital Signs Vital Sign Reading Time Taken Comments Blood Pressure - - Pulse - - Temperature - - Respiratory Rate - - Oxygen Saturation - - Inhaled Oxygen Concentration - - Weight 55.9 kg (123 lb 3.2 oz) 02/16/2025 9:55 A M EDT Height 157.5 cm (5' 2 ) 02/16/2025 9:55 AM EDT Body Mass Index 22.53 02/16/2025 9:55 AM EDT documented in this encounter Functional Status documented as of this encounter Progress Notes * Radha Rudolph PA-C - 02/16/2025 9:00 AM EDT Referring Physician: No referring provider defined for this encounter. Primary Physician: Ynes Denny APRN CHIEF COMPLAINT or REASON FOR VISIT: No chief complaint on file. Initial history of present illness on 07/07/2024: Ms. Lana Jennings is 89 y.o. female who presents as a new patient referral for evaluation treatmentof chronic lumbosacral pain. Patient reports a multiyear history of achy pain bilaterally on her buttock. She has been evaluated for this issue by Dr. Rowe, orthopedics, who referred for evaluation of sacroiliac joint pain. She denies any radiation distally down the legs. She denies any numbnessor weakness. Denies a history of spinal surgery or injection. Has tried acetaminophen, NSAIDs with modest benefit. Interval history: Patient returns to clinic today after undergoing bilateral sacroiliac joint steroid injections. Shereports excellent relief from this procedure for approximately 6 months. She noticed a return of her symptoms a couple months ago without any inciting injury or event. She continues plaint of chronicbilateral low back/buttock pain. This pain is particularly present at night when laying down. Interventions: 07/22/2025: Bilateral SIJ with 70% relief for 6 months Objective Pain Scoring: BRIEF PAIN INVENTORY: Total score: Pain Score 02/16/25 0955 PainSc: 0-No pain PHQ-2: 0 PHQ-9: Opioid Risk Tool: Review of Systems: ROS negative except as otherwise noted Past Medical History: Past Medical History: Diagnosis Date Arthritis Basal cell carcinoma GERD (gastroesophageal reflux disease) History of breast cancer Past Surgical History: History reviewed. No pertinent surgical history. Family History Family History Problem Relation Age of Onset Arthritis Daughter Social History Social History Socioeconomic History Marital status: Tobacco Use Smoking status: Never Smokeless tobacco: Never Vaping Use Vaping status: Never Used Substance and Sexual Activity Alcohol use: Never Drug use: Never Sexual activity: Defer Medications: Current Outpatient Medications: celecoxib (CeleBREX) 100 MG capsule, Take 1 capsule by mouth 2 (Two) Times a Day As Needed for MildPain., Disp: 60 capsule, Rfl: 5 Cholecalciferol (Vitamin D3) 1.25 MG (36676 UT) capsule, Take 1 capsule by mouth 2 (Two) Times a Week., Disp: , Rfl: cyanocobalamin 1000 MCG/ML injection, Inject 1 mL into the appropriate muscle as directed by prescriber Every 30 (Thirty) Days., Disp: , Rfl: DULoxetine (CYMBALTA) 30 MG capsule, Take 1 capsule by mouth Daily. for pain, Disp: 30 capsule, Rfl: 5 ferrous sulfate 325 (65 FE) MG tablet, Take 1 tablet by mouth Daily With Breakfast., Disp: , Rfl: multivitamin with minerals (PRESERVISION AREDS PO), Take 1 tablet by mouth Daily., Disp: , Rfl: omeprazole (priLOSEC) 20 MG capsule, TAKE 1 CAPSULE BY MOUTH ONCE DAILY 30 MINUTES BEFORE MORNING MEAL, Disp: , Rfl: Physical Exam: Vitals: 02/16/25 0955 Weight: 55.9 kg (123 lb 3.2 oz) Height: 157.5 cm (62 ) PainSc: 0-No pain General: Alert and oriented, No acute distress. HEENT: Normocephalic, atraumatic. Cardiovascular: No gross edema Respiratory: Respirations are non-labored Lumbar Spine: No masses or atrophy Range of motion - Flexion normal. Extension normal. Facet Loading: Negative bilaterally Facet Palpation - Nontender PSIS tenderness-positive bilaterally Marycruz finger/Gaenslen's/Darrion's/SINGH/Thigh thrust -positive bilateral Straight leg raise/slump test: Negative bilaterally Multifidus toe-touch test: Motor Exam: Strength: Rate on 1-5 scale Right Left L1/2- hip flexion 5/5 5/5 L3- knee extension 5/5 5/5 L4- ankle dorsiflexion 5/5 5/5 L5- great toe extension 5/5 5/5 S1- ankle plantarflexion 5/5 5/5 Sensory Exam: Full and equal sensation to light touch throughout. Neurologic: Cranial Nerves II-XII are grossly intact. Psychiatric: Cooperative. Gait: Normal Assistive Devices: None Imaging Studies: No results found for this or any previous visit. Independent review of radiographic imaging: Available for my interpretation is a lumbar radiograph dated 05/21/2024 demonstrating: Dextroscoliosis with apex at L2 (smith ~28 degrees); facet spondylosis; vacuum disc phenomenon at L4/L5; some sclerosis of the right sacroiliac joint Impression & Plan: 07/07/2024: Lana Jennings is a 89 y.o. female with past medical history significant for GERD, arthritis who presents to the pain clinic for evaluation and treatment of chronic axial low back pain. Evaluation consistent with sacroiliac joint pain, lumbar facet arthritis. We discussed sacroiliac joint injection. I had a discussion with the patient regarding the risks of the procedure including bleeding, infection, damage to surrounding structures. We discussed the potential adverse effects of corticosteroid injection including flushing of the face, lipodystrophy, skin discoloration, elevated blood glucose, increased blood pressure. Risks of frequent steroid administration include weight gain,hormonal changes, mood changes, osteoporosis. 02/16/2025: Excellent relief from bilateral SIJ. Return to symptoms. Will plan for repeat. 1. Sacroiliac joint pain 2. Lumbosacral spondylosis without myelopathy PLAN: 1. Medication Recommendations: Recommend Voltaren topical, NSAIDs, Tylenol. Can trial turmeric 500 mg twice daily if NSAID contraindicated. 2. Physical Therapy: Continue HEP. 3. Psychological: defer 4. Complementary and alternative (CAM) Therapies: 5. Labs/Diagnostic studies: None indicated 6. Imagin. Interventions: Schedule repeat bilateral sacroiliac joint steroid injection I had an in-depth discussion with the patient regarding the risk of procedure including bleeding, infection, damage to surrounding structures, paralysis. We discussed the potential adverse effects ofcorticosteroid injection including flushing of the face, lipodystrophy, skin discoloration, elevated blood glucose, increased blood pressure. Risks of frequent steroid administration includes weight gain, hormonal changes, mood changes, and osteoporosis. 8. Referrals: None indicated 9. Records: 10. Lifestyle goals: Follow-up 4-[address] [facility] Radha Rudolph PA-C Quality Metrics: documented in this encounter Plan of Treatment Upcoming Encounters Date Type Department Care Team (Late st Contact Info) Description 05/26/2025 10:45 AM EDT Office Visit [facility] [address] [address] Saeed Welch MD [address] [id number] 07/07/2025 10:00 AM EST Office Visit [facility] [address] [facility] [address] [place] [address] Radha Rudolph PA-C [address] [facility] [address] [place] [address] Scheduled Orders Name Type Priority Associated Diagnoses Orde r Schedule External Facility Surgical/Procedural Request Procedures Routine Sacroiliac joint pain Expected: 02/16/2025, Expires: 02/16/2026 documented as of this encounter Visit Diagnoses Diagnosis Sacroiliac joint pain- Primary Disorders of sacrum Lumbosacral spondylosis without myelopathy documented in this encounter Care Teams Metal Fabrication Supervisor Relationship Specialty Start Date End Date Ynes Denny APRN [address] [place] [address] PCP - General Nurse Practitioner 02/12/24 documented as of this encounter
--- OUTSIDE RECORDS SUMMARY | 2025-03-16 18:24 | XMS_ITS | Encounter Summary ---
Author Organization [facility] Address [address] [place] [address] Care Team Providers Care Hub Cutter Apprentice Name Role Phone Ynes Denny APRN Primary Care Provider [phone] Encounter Details Date Type Department Care Team (Latest Contact Info) Description 02/16/2025 Travel Social History Tobacco Use Types Packs/Day Years [...] on file documented as of this encounter Functional Status documented as of this encounter Plan of Treatment Upcoming Encounters Date Type Department Care Team (Late st Contact Info) Description 05/26/2025 10:45 AM EDT Office Visit [facility] [address] [facility] [address] [place] [address] Saeed Welch MD 330 [facility] [address] [place] [address] 07/07/2025 10:00 AM EST Office Visit [facility] [address] [facility] [address] [place] [address] Radha Rudolph PA-C [address] [address] documented as of this encounter Visit Diagnoses Not on filedocumented in this encounter Care Teams Hub Cutter Apprentice Relationship Specialty Start Date End Date Ynes Denny APRN [address] [place] [address] PCP - General Nurse Practitioner 02/12/24 documented as of this encounter
--- OUTSIDE RECORDS SUMMARY | 2025-03-16 18:24 | XMS_ITS ---
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
--- OUTSIDE RECORDS SUMMARY | 2025-03-16 18:24 | XMS_ITS | Encounter Summary ---
Author Organization [facility] Address [address] [place] [address] Care Team Providers Care Hosiery Knitter Name Role Phone Renard Crane MD Primary Care Provider [phone] Emre Delgado MD Primary Care Provider [phone] Encounter Details Date Type Department Care Team (Late st Contact Info) Description 03/16/2021 Orders Only [facility] [address] [place] [address] Renard Crane MD [address] [address] Social History Tobacco Use Types Packs/Day Years Used Date Smoking Tobacco: Never Assessed Comments Unknown Sex and Gender Information Value Date Recorded Sex Assigned at Not on file Legal Sex Female 7:28 PM EDT Gender Identity Not on file Sexual Orientation Not on file documented as of this encounter Plan of Treatment Not on file documented as of this encounter Procedures Procedure Name Priority Date/Time Associated Diagnosis Comments CBC WITH AUTO DIFFERENTIAL Routine 03/16/2021 11:56 AM EDT documented in this encounter Results * CBC and Differential (03/16/2021 11:56 AM EDT) External WBC 6.3 3.8 - 10.8 K/uL [facility] External Red Blood Cell (RBC) 4.28 3.80 - 5.20 M/uL [facility] External Hemoglobin 12.7 12.0 - 16.0 G/DL [facility] External Hematocrit 39.0 35.0 - 47.0 % [facility] External MCV 91 80 - 100 fL [facility] External MCH 30 26 - 35 PG [facility] External MCHC 33 32 - 36 G/DL [facility] External RDW 14.1 11.0 - 15.0 % [facility] External Mean Platelet Volume 9.7 6.2 - 10.5 fL [facility] External Platelets 169 130 - 400 K/uL [facility] External Neutrophil# 3.6 1.6 - 8.4 K/uL [facility] External Lymphocyte# 2.0 0.4 - 5.1 K/uL [facility] External Absolute Monocyte (Abs [place]) 0.5 0.0 - 1.2 K/uL [facility] External Eosinophils# 0.2 0.0 - 0.8 K/uL [facility] External Baso# 0.0 0.0 - 0.3 K/uL [facility] External Neutrophils % 57.0 42.0 - 78.0 % [facility] External Lymphocyte % 31.0 11.0 - 47.0 % [facility] External Monocyte % 8.7 0.0 - 11.0 % [facility] External Eosinophil% 2.7 0.0 - 7.0 % [facility] External Basophil % 0.6 0.0 - 3.0 % [facility] External Nucleated RBC%-Auto 0.1 0.0 - 0.9 % [facility] External Nucleated RBC Absolute 0.00 Not Estab. K/uL [facility] 03/16/2021 11:5 6 AM EDT 03/16/2021 1:01 PM EDT us Renard Crane MD LAB BLOOD ORDERABLES Final Res ult [facility] [address] [place] [address], documented in this encounter Visit Diagnoses Not on filedocumented in this encounter Care Teams Hosiery Knitter Relationship Specialty Start Date End Date Renard Crane MD PCP - General 12/24/20 04/08/24 Emre Delgado MD [address] [place] [address] [address] [place] [address] PCP - General Family Medicine 04/09/24 documented as of this encounter
--- OUTSIDE RECORDS SUMMARY | 2025-03-16 18:24 | XMS_ITS | Clinical Summary ---
Author Organization [facility] Address [address] [place] [address] Care Team Providers Care Cytotechnologist/Cytology Supervisor Name Role Phone Emre Delgado MD Primary Care Provider [phone] Allergies No known active allergies Medications celecoxib (CeleBREX) 100 MG capsule Take 1 capsule (100 mg) by mouth 2 (two) times a day. Active Vitamin D3 1.25 MG (87918 UT) capsule TAKE 1 CAPSULE BY MOUTH TWICE A WEEK 03/21/2024 Active omeprazole (PriLOSEC) [address] capsule TAKE 1 CAPSULE BY MOUTH ONCE DAILY 30 MINUTES BEFORE MORNING MEAL Active cyanocobalamin (Vitamin B-12) 1000 MCG tablet Take 1 tablet (1,000 mcg) by mouth 1 (one) time each day. Active Active Problems Problem Noted Date Diagnosed Date History of breast cancer 04/15/2024 Malignant neoplastic disease 04/11/2019 Social History Tobacco Use Types Packs/Day Years Used Date Smoking Tobacco: Never Smokeless Tobacco: Never Tobacco Cessation:Counseling Given: Not Answered Comments Unknown Sex and Gender Information Value Date Recorded Sex Assigned at Not on file Legal Sex Female 7:28 PM EDT Gender Identity Not on file Sexual Orientation Not on file Last Filed Vital Signs Vital Sign Reading Time Taken Comments Blood Pressure 126/79 04/15/2024 1:23 PM EDT Pulse 74 04/15/2024 1:23 PM EDT Temperature 36.5 C (97.7 F) 04/15/2024 1:23 PM EDT Respiratory Rate - - Oxygen Saturation 94% 04/15/2024 1:23 PM EDT Inhaled Oxygen Concentration - - Weight 58 kg (127 lb 13.9 oz) 04/15/2024 1:23 PM EDT Height 162.6 cm (5' 4 ) 04/15/2024 1:23 PM EDT Body Mass Index 21.95 04/15/2024 1:23 PM EDT Plan of Treatment Health Maintenance Due Date Last Done Comments [facility]-Bone Density Scan 1935 [facility]-Depression Screening 1935 [facility]-Medicare Annual Wellness (AWV) 1935 [facility]-/Child/Adol SDOH Screenings 1935 [facility]-RGFPR-33 Vaccine (#1) 12/06/1940 [facility]- SDOH Screenings 12/06/1953 [facility]-Adult SDOH Screenings 12/06/1953 [facility]-Pneumococcal Vaccine: 50+ Years (1 of 2 - PCV) 12/06/1954 [facility]-RSV Vaccine: 60+ Years or (1 - 1-dose 75+ series) 12/06/2010 [facility]-Zoster Vaccines (1 of 2) 05/08/2016 03/13/2016 [facility]-Influenza Vaccine (#1) 04/13/202506/12, 05/26/2019, 05/23/2019, Additional history exists [facility]-DTaP,Tdap,and Td Vaccines (2 - Td or Tdap) 06/04/2033 06/04/2023 HPV Vaccines Aged Out No longer eligi ble based on patient's age to complete this topic [facility]-HIB Vaccines Aged Out No longer e ligible based on patient's age to complete this topic [facility]-Hepatitis A Vaccines Aged Out No longer eligible based on patient's age to complete this topic [facility]-IPV Vaccines Aged Out No longer e ligible based on patient's age to complete this topic [facility]-Rotavirus Vaccines Aged Out No lo nger eligible based on patient's age to complete this topic Insurance Care Teams Cytotechnologist/Cytology Supervisor Relationship Specialty Start Date End Date Emre Delgado MD [address] [place] [address] PCP - General Family Medicine 04/09/24
--- OUTSIDE RECORDS SUMMARY | 2025-03-16 18:24 | XMS_ITS | Encounter Summary ---
Author Organization [facility] Address [address] [place] [address] Care Team Providers Care Billet Header Name Role Phone Renard Crane MD Primary Care Provider [phone] Emre Delgado MD Primary Care Provider [phone] Encounter Details Date Type Department Care Team (Late st Contact Info) Description 03/16/2021 Orders Only [facility] [address] [place] [address] Renard Crane MD [address] [address] Social History Tobacco Use Types [...] Procedure Name Priority Date/Time Associated Diagnosis Comments COMPREHENSIVE METABOLIC PANEL, PLASMA Routine 03/16/2021 11:56 AM EDT documented in this encounter Results * (ABNORMAL) Comprehensive Metabolic Panel, Plasma (03/16/2021 11:56 AM EDT) External Glucose 87 74 - 100 mg/dL [facility] External BUN 15 6 - 20 mg/dL [facility] External Creatinine Blood 1.02(H) 0.50 - 0.95 mg/dL [facility] External BUN/Creat Ratio 15 10 - 20 (calc) [facility] External Sodium 141 136 - 145 mmol/L [facility] External Potassium 4.3 3.4 - 5.0 mmol/L [facility] External Chloride 106 98 - 107 mmol/L [facility] External Carbon Dioxide 23 22 - 31 mmol/L [facility] External Anion Gap (AG) 12 7 - 25 (calc) [facility] External Calcium 9.0 8.6 - 10.2 mg/dL [facility] External Total Protein 6.6 6.4 - 8.3 g/dL [facility] External Albumin 3.7 3.5 - 5.2 g/dL [facility] External Globulin 2.9 1.5 - 4.5 g/dL (calc) [facility] External Albumin/Globulin Ratio 1.3 1.1 - 2.5 (calc) [facility] External Bilirubin Total 0.3 0.1 - 1.2 mg/dL [facility] External Alkaline Phosphatase 81 35 - 106 U/L [facility] External AST (SGOT) 17 0 - 32 U/L [facility] External ALT (SGPT) 13 0 - 33 U/L [facility] External EGFR (If AFR/AM) 58(A) >=60 [facility] External Estimated GFR 50(A) >=60 [facility] Comment: NOTE Chronic kidney disease is defined as kidney damage for more than 3 months or a GFR less than 60 mL/min/1.73 m2 for greater than 3 months. This calculation has not been validated in women. For pediatric patients refer to [employer] https://www.kidney.org/professionals/KDOQI/gfr_calculatorPed 03/16/2021 11:5 6 AM EDT 03/16/2021 1:01 PM EDT Renard Crane MD LAB BLOOD ORDERABLES Final Res ult [facility] [address] [place] [address], documented in this encounter Visit Diagnoses Not on filedocumented in this encounter Care Teams Billet Header Relationship Specialty Start Date End Date Renard Crane MD PCP - General 12/24/20 04/08/24 Emre Delgado MD [address] [place] [address] PCP - General Family Medicine 04/09/24 documented as of this encounter
--- OUTSIDE RECORDS SUMMARY | 2025-03-16 18:24 | XMS_ITS | Encounter Summary ---
Author Organization [facility] Address [address] [place] [address] Care Team Providers Care Food Service Worker Name Role Phone Renard Crane MD Primary Care Provider [phone] Emre Delgado MD Primary Care Provider Encounter Details Date Type Department Care Team (Late st Contact Info) Description 04/11/2022 Orders Only [facility] [address] [place] [address] Conner Martino, DO [address] [place], [place] [id number] Social History Tobacco Use Types Packs/Day Years [...] Procedure Name Priority Date/Time Associated Diagnosis Comments SURGICAL PATHOLOGY EXAM Routine 04/11/2022 documented in this encounter Results * Surgical Pathology Exam (04/11/2022) External Surgical Pathology SEE BELOW [facility] Comment: Department of Pathology Surgical Pathology Report NAME:ISHMAEL SCHILLING PATH.:[id number] Copy to: Diagnosis: Right upper medial cheek: Basal cell carcinoma, nodular type; incompletely excised. SOURCE OF SPECIMEN: SKIN BIOPSY, RIGHT UPPER MEDIAL CHEEK CLINICAL INFORMATION: D48.5 Gross Description: Received in formalin labeled with the patient's name and designated as right upper medial cheek is a shave biopsy of skin (0.7 x 0.6 x 0.1 cm). The epidermal surface is white, roughened and nodular. The margin is inked blue. The specimen is bisected and entirely submitted in one cassette. [facility] 04/12/2022 10:31 AM Microscopic Description: A microscopic examination has been performed and the result(s) are as noted above. <Sign Out Dr. Trejo> MADISON SOTO M.D. Signed Out Date: 04/13/2022 11:40 Page 1 of 1 04/11/2022 04/11/2022 8:5 4 PM EDT us Conner Martino DO LAB PATHOLOGY ORDERABLES F inal Result Performing Organization Address City/State/[facility] Co de Phone Number [facility] [address] [place] [address], documented in this encounter Visit Diagnoses Not on filedocumented in this encounter Care Teams Food Service Worker Relationship Specialty Start Date End Date Renard Crane MD PCP - General 12/24/20 04/08/24 Emre Delgado MD [address] [place] [address] PCP - General Family Medicine 04/09/24 documented as of this encounter
--- OUTSIDE RECORDS SUMMARY | 2025-03-16 18:24 | XMS_ITS | Encounter Summary ---
[facility] Address [address] [place] [address] Care Team Providers Care Loom Fixer Name Role Phone Ynes Denny APRN Primary Care Provider [phone] Encounter Details Date Type Department Care Team (Late st Contact Info) Description 02/25/2025 Telephone [facility] PAIN MANAGEMENT [address] [address] Kristi Batista MA Social History Tobacco Use Types Packs/Day Years [...] on file documented as of this encounter Miscellaneous Notes * Telephone Encounter - Kristi Batista MA - 02/25/2025 11:00 AM EDT S/w patient's caregiver, she has opted to cancel her procedure with Dr Ramos on 03/03/2025.States she is feeling better. documented in this encounter Plan of Treatment Upcoming Encounters Date Type Department Care Team (Late st Contact Info) Description 05/26/2025 10:45 AM EDT Office Visit [facility] RHEUMATOLOGY 330 [facility] 100 [place] [phone] Saeed Welch MD 330 [facility] 100 [place] [address] 07/07/2025 10:00 AM EST Office Visit [facility] PAIN MANAGEMENT 3000 [facility] 330 [place] [address] Radha Rudolph PA-C 1760 [facility] 302 [place], [place] [id number] documented as of this encounter Visit Diagnoses Not on filedocumented in this encounter Care Teams Loom Fixer Relationship Specialty Start Date End Date Ynes Denny APRN [address] [place] [address] PCP - General Nurse Practitioner 02/12/24 documented as of this encounter
--- OUTSIDE RECORDS SUMMARY | 2025-03-16 18:24 | XMS_ITS | Encounter Summary ---
Author Organization [facility] Address [address] [place] [address] Care Team Providers Care Civil Engineering Design Draftsperson Name Role Phone Ynes Denny APRN Primary Care Provider [phone] Reason for Visit * Reason Onset Date Comments RAMOS- ORDER FOR INJECTIONS 02/10/2025 Encounter Details Date Type Department Care Team (Late st Contact Info) Description 02/10/2025 Telephone [facility] PAIN MANAGEMENT [address] [address] Adarsh Ramos MD [address] [address] RAMOS- ORDER FOR INJECTIONS Social History Tobacco Use Types Packs/Day Years Used Date Smoking Tobacco: Never Smokeless Tobacco: Never Alcohol Use Standard Drinks/Week Comments Never 0 (1 standard drink = 0.6 oz pur e alcohol) PHQ-2 Answer Date Recorded Patient Health Questionnaire-2 Score 0 07/07/2024 Comments Unknown Sex and Gender Information Value Date Recorded Sex Assigned at Not on file Legal Sex Female 11:07 AM EDT Gender Identity Not on file Sexual Orientation Not on file documented as of this encounter Miscellaneous Notes * Telephone Encounter - Micky Mcdermott RN - 02/10/2025 1:55 PM EDT Attempted to call patient to scheduled a follow up with Nicolás Hub relay Please scheduled patient for follow up with Nicolás * Telephone Encounter - Haleigh Harris PCT - 02/10/2025 1:34 PM EDT Caller: NIALL FRIEDMAN Relationship to Patient: CARE TENDER Reason For Call: REQUESTING ANOTHER ROUND OF INJECTIONS documented in this encounter Plan of Treatment Upcoming Encounters Date Type Department Care Team (Late st Contact Info) Description 05/26/2025 10:45 AM EDT Office Visit [facility] RHEUMATOLOGY [address] [place] [phone] Saeed Welch MD [address] [phone] 07/07/2025 10:00 AM EST Office Visit [facility] PAIN MANAGEMENT [address] [address] Radha Rudolph PA-C 1760 [facility] [address] [place] [phone] documented as of this encounter Visit Diagnoses Not on filedocumented in this encounter Care Teams Civil Engineering Design Draftsperson Relationship Specialty Start Date End Date Ynes Denny APRN [address] [place] [phone] PCP - General Nurse Practitioner 02/12/24 documented as of this encounter
--- OUTSIDE RECORDS SUMMARY | 2025-03-16 18:25 | XMS_ITS | Clinical Summary ---
Author Organization [facility] Address [address] [place] [address] Care Team Providers Care Oil Agent Name Role Phone Ynes Denny APRN Primary Care Provider [phone] Allergies No known active allergies Medications Cholecalciferol (Vitamin D3) 1.25 MG (51713 UT) capsule Take 1 capsule by mouth 2 (Two) Times a Week. Active multivitamin with minerals (PRESERVISION AREDS PO) Take 1 tablet by mouth Daily. Active ferrous sulfate 325 (65 FE) MG tablet Take 1 tablet by mouth Daily With Breakfast. Active cyanocobalamin 1000 MCG/ML injection Inject 1 mL into the appropriate muscle as directed by prescriber Every 30 (Thirty) Days. Active omeprazole (priLOSEC) 20 MG capsule TAKE 1 CAPSULE BY MOUTH ONCE DAILY 30 MINUTES BEFORE MORNING MEAL 5 Active DULoxetine (CYMBALTA) 30 MG capsuleIndicati ons:Generalized osteoarthrosis, involving multiple sites Take 1 capsule by mouth Daily. for pain 30 capsule 5 5 Active celecoxib (CeleBREX) 100 MG capsuleIndicati ons:Generalized osteoarthrosis, involving multiple sites Take 1 capsule by mouth 2 (Two) Times a Day As Needed for Mild Pain. 60 capsule 5 5 Active Active Problems Problem Noted Date Diagnosed Date Generalized osteoarthrosis, involving multiple s ites 05/21/2024 Assessment & Plan (05/21/2024 3:04 PM EDT): -Continue as needed NSAID NSAID long-term use 05/21/2024 Assessment & Plan (05/21/2024 3:04 PM EDT): Risks of NSAIDs discussed including GI upset, GI bleeding, renal or hepatic risks and the risk of cardiovascular disease and stroke. Warned patient not to take other NSAIDs including [id number] NSAIDs Right hip pain 05/21/2024 Assessment & Plan (05/21/2024 3:04 PM EDT): Daughter is Tammy Barnett patient with RA. Current: Celecoxib, duloxetine -Suspect right hip osteoarthritis causing chronic right hip pain. Could also be referred pain from her lumbar spine There is no evidence of rheumatoid arthritis or inflammatory arthritis to account for her joint pain She has history of early breast cancer 2018, so metastatic disease on the differential but thought to be unlikely -Obtain x-ray of the right hip and lumbar spine -Obtain labs today as below for monitoring on NSAID therapy -Continue celecoxib 100 mg twice daily -Add duloxetine 30 mg daily for OA pain Risk and benefits of SNRIs discussed including but not limited to worsening depression, suicidal ideation, nausea, constipation -We discussed consultation with orthopedics to consider a future x-ray guided steroid injection right hip. She is interested in this, so we will arrange consultation with orthopedics. She has no interest in joint surgery/replacement however -Handout provided on osteoarthritis -Return to clinic 6 months History of breast cancer 05/21/2024 Assessment & Plan (05/21/2024 3:04 PM EDT): 2019. Followed by hematology oncology Dr. Crane Encounters Date Type Department Care Team Description 02/25/2025 Telephone [facility] PAIN MANAGEMENT [address] [facility] 302 [place] [address] Kristi Batista MA 02/16/2025 9:00 AM EDT Office Visit [facility] PAIN MANAGEMENT [address] [address] [place] [phone] Radha Rudolph PA-C Sacroiliac joint pain (Primary Dx); Lumbosacral spondylosis without myelopathy 02/16/2025 Travel 02/10/2025 Telephone [facility] PAIN MANAGEMENT 1760 [facility] 302 [place] [phone] Adarsh Ramos MD [facility]- ORDER FOR INJECTIONS from Last 3 Months Family History Medical History Relation Name Comments Arthritis Daughter Relation Name Status Comments Daughter Social History Tobacco Use Types Packs/Day Years Used Date Smoking Tobacco: Never Smokeless Tobacco: Never Tobacco Cessation:Counseling Given: Not Answered Alcohol Use Standard Drinks/Week Comments Never 0 [...] Sign Reading Time Taken Comments Blood Pressure 128/76 11/24/2024 10:38 AM EDT Pulse 83 11/24/2024 10:38 AM EDT Temperature 36.4 C (97.5 F) 11/24/2024 10:38 AM EDT Respiratory Rate - - Oxygen Saturation - - Inhaled Oxygen Concentration - - Weight 55.9 kg (123 lb 3.2 oz) 02/16/2025 9:55 A M EDT Height 157.5 cm (5' 2 ) 02/16/2025 9:55 AM EDT Body Mass Index 22.53 02/16/2025 9:55 AM EDT Plan of Treatment Upcoming Encounters Date Type Department Care Team (Late st Contact Info) Description 05/26/2025 10:45 AM EDT Office Visit [facility] RHEUMATOLOGY 330 [facility] 100 [place] [address] Saeed Welch MD 330 [facility] 100 [place] [address] 07/07/2025 10:00 AM EST Office Visit [facility] PAIN MANAGEMENT 3000 [facility] 330 [place] [phone] Radha Rudolph PA-C 1760 [facility] [address] [place], [place] [phone] Health Maintenance Due Date Last Done Comments Pneumococcal Vaccine 50+ (1 of 1 - PCV) 12/06/1985 RSV Vaccine - Adults (1 - 1- dose 75+ series) 12/06/2010 ZOSTER VACCINE (2 of 3) 05/08/2016 03/13/2016 COVID-19 Vaccine (1 - 2023-2 5 season) 2024 ANNUAL WELLNESS VISIT 05/06/2024 INFLUENZA VACCINE 05/13/2025 06/12/2023, , 06/04/2018, Additional history exists DXA SCAN 12/05/2026 12/05/2024 TDAP/TD VACCINES (2 - Td or Tdap) 06/04/2033 023 Procedures Procedure Name Priority Date/Time Associated Diagnosis Comments DEXA BONE DENSITY AXIAL Routine 12/05/2024 Post-menopause Screening for osteoporosis from Last 3 Months or Most Recently Relevant to Health Maintenance Results * DEXA Bone Density Axial (12/05/2024) Anatomical Region Laterality Modality Wrist, Hip, L-spine N/A Radiographic Imaging us Saeed Welch MD IMG DXA ORDERABLES Final Re sult from Last 3 Months or Most Recently Relevant to Health Maintenance Insurance [facility] PPO Care Teams Oil Agent Relationship Specialty Start Date End Date Ynes Denny APRN [address] [place] [address] PCP - General Nurse Practitioner 02/12/24
[2025-03-16 18:27] VITALS: BP 141/92; PULSE 90; RESP 18; TEMP 36.7; O2SAT 99; BMI 21.2
--- NOTE | 2025-03-16 18:32 | XR_ITS ---
PROCEDURE INFORMATION: Exam: XR Left Tibia and Fibula Exam date and time: 03/16/2025 6:46 PM Age: 89 years old Clinical indication: Injury or trauma; Other: Hit lower leg; Laceration; Left; Without foreign body; Additional info: Left leg injury TECHNIQUE: Imaging protocol: Radiologic exam of the left tibia and fibula. Views: 2 views. COMPARISON: No relevant prior studies available. FINDINGS: Bones/joints: See Soft tissues finding. Soft tissues: Mild left lower leg soft tissue swelling without acute osseous abnormality. IMPRESSION: Mild left lower leg soft tissue swelling without acute osseous abnormality.
--- NOTE | 2025-03-16 18:32 | ED_ITS ---
<Statement entered by Billy Brand MD - 03/16/25 22:46> I was consulted by the RASHIDA, and we discussed the complexity of the problems being addressed. I approved the treatment and management plan for this patient's care in the emergency department, thus performing a substantive portion of the medical decision making. Billy Brand MD, DESI, FACEP Discharge Plan Disposition Patient Disposition: Home, Self-Care Condition: Good Prescriptions Prescriptions: No Action lorazepam 0.5 mg tablet 0.5 mg PO DAILY PRN Patient Comments: TAKE 1 TABLET BY MOUTH TWICE DAILY NEEDED FOR 30 DAYS celecoxib 100 mg capsule 100 mg PO DAILY omeprazole 20 mg capsule,delayed release(DR/EC) 20 mg PO DAILY clobetasol 0.05 % cream 1 applic topical DAILY PRN (Reason: itching) Qty: 60 9RF guaifenesin [Mucinex] 600 mg tablet extended release 12hr 600 mg PO Q12H PRN (Reason: congestion) Qty: 10 0RF azithromycin 250 mg tablet See Rx Instructions PO .COMPLEX Qty: 6 0RF Rx Instructions: For 250 mg dose pack: take 500 mg today (day 1), then 250 mg for 4 days (days 2-5) PO anastrozole 1 MG tablet 1 mg PO DAILY cyanocobalamin (vitamin B-12) 1,000 MCG tablet 1,000 mcg PO DAILY Qty: 100 0RF Referrals Follow up/Referrals: Navya Delgado MD [Primary Care Provider, Medical] - See instructions Activity Restrictions/Add. Instructions Additional Instructions/Restrictions: Please follow-up with wound care and your primary care doctor in the upcoming days, return to the emerged for with any worsening signs or symptoms, utilize topical antibiotic ointment for your wound, change your dressing as needed. Clinical Impressions Clinical Impression: Skin tear of lower leg without complication Instructions Patient Instructions: DI for Abrasion Print Language Print Language: [place] Discharge ED Provider: Billy Brand General Adult HPI General Chief complaint: Wound/Laceration Stated complaint: AO 03/16/25 1600 Injury left leg Time Seen by Provider: 03/16/25 18:17 Mode of Arrival: Ambulatory Source of Information: Patient Limitations: No Limitations History of Present Illness HPI narrative: 89-year-old female presents the emergency department accompanied by family member for a left leg injury that occurred around 4 or 4:30 PM today. Patient states that she was seen in the urgent care treatment facility and instructed come to the emergency department due to persistent bleeding from her injury. Patient was attempting to get in the back of a truck bed , to get some materials out, when she slipped and fell, hitting her leg against the side board of the truck , she sustained a skin tear to that area, was seen in urgent care treatment facility and did have wound care performed, but hemostasis was unable to be achieved, patient denies any anticoagulant use, denies striking head, denies LOC, denies any presyncopal or syncopal event, denies any fever chills chest pain shortness of breath, nausea vomiting constipation diarrhea no abdominal pain no urinary cosmetology, no neck pain, no back pain, no other upper or lower extremity injury. Does have a history of fall/skin tears. Other past medical history is consistent with GERD, history of breast cancer on hormone jackie therapy, atrophic vaginitis, macular degeneration. Initial triage vitals unremarkable, denies any alcohol tobacco or drug use. Please note that above description of symptoms, in this electronic medical record under categorization of recalled from ER triage doctor by RN are reflective of an initial nursing assessment, however, is not reflective of my full history and physical exam that was personally taken and clarified. Consequentially, this preceding description of symptoms, which may include the patient's categorized chief complaint in the EMR, do not reflect my personal clinical impression, and the ultimate description of history of present illness and patient stated complaints should be deferred to this section of the note. Unless stated otherwise or congruent with this section of the note, additional signs, symptoms, or incongruence should be interpreted as inaccurate with my clinical impression. Related Data Home Medications ?Medication ?Instructions ?Recorded ?Confirmed anastrozole 1 mg tablet 1 mg PO DAILY CANCER 1 08/16/23 celecoxib 100 mg capsule 100 mg PO DAILY 08/16/2312/04 lorazepam 0.5 mg tablet 0.5 mg PO DAILY PRN 08/16/23 08/16/23 omeprazole 20 mg capsule,delayed 20 mg PO DAILY 08/16/23 release Previous Rx's ?Medication ?Instructions ?Recorded cyanocobalamin (vitamin B-12) 1,000 mcg PO DAILY #100 tabs 09/26/20 1,000 mcg tablet clobetasol 0.05 % topical cream 1 applic topical DAILY PRN itching 08/16/23 #60 grams azithromycin 250 mg tablet See Rx Instructions PO .COM PLEX #6 12/24/24 tabs guaifenesin 600 mg tablet, 600 mg PO Q12H PRN congesti on #10 12/24/24 extended release 12 hr (Mucinex) tabs Allergies Allergy/AdvReac Type Severity Reaction Status Date / Time No Known Allergies Allergy Verified 12/24/24 10:20 [facility] Disclaimer: The information contained in this section may have been updated after the patient was seen, as this information can be updated by other users. Medical History (Updated 03/16/25 @ 19:24 by SANTIAGO Marinelli) Bronchitis Sinusitis Surgical History H/O tubal ligation History of appendectomy Family History Other Cancer Diabetes Hypertension Stroke Social History Smoking Status: Never smoker alcohol intake: never substance use type: denies use current occupational status: retired Travel in the last 8 weeks?: None household members: family housing: house current occupational exposures/hazards: No caffeine: Yes Have you lived/traveled outside US in past 30 days?: No Contact w/someone who lives/traveled outside US past 30 days?: No Exposure to someone with infectious disease in past 14 days?: No Do you have a fever (greater than 100.4 F or 38 C)?: No Have you tested positive for COVID-19?: No Exposed to someone with COVID-19 in past 14 days?: No Do you have a sore throat?: No Do you have a cough?: No Do you have any weakness?: No Do you have any diarrhea?: No Are you experiencing any unusual bleeding?: No Do you have any muscle aches/pain?: No Do you have any abdominal pain?: No Are you experiencing loss of taste or smell?: No Other Medical History Have you received the Flu Vaccine for this season: No Have you received the Pneumonia Vaccine: No ROS Obtained: Yes All systems reviewed & no additional complaints except as documented Physical Exam General General appearance: alert and in no apparent distress Head Head exam: atraumatic and normocephalic Eye Eye exam: Present PERRL and EOMI ENT ENT exam: Present mucous membranes moist Neck Neck exam: Present normal inspection Chest Chest inspection: Present normal inspection and symmetric chest wall rise Respiratory Respiratory exam: Present normal lung sounds bilaterally; Absent respiratory distress Cardiovascular Cardiovascular exam: Present regular rate and normal rhythm Abdominal Exam Abdominal exam: Present soft; Absent tenderness, guarding, rebound or rigidity Extremities Exam Extremities exam: Present normal inspection Back Exam Back exam: Present normal inspection and full ROM; Absent tenderness, paraspinal tenderness or vertebral tenderness Neurological Exam Neurological exam: Present alert and oriented X3 Psychiatric Psychiatric exam: Present normal affect Skin Skin exam: Present warm, dry and other (4-5 cm skin tear noted on the patient's lateral, tibia, with active bleeding.) Medical Decision Making Medical Records Medical records reviewed: Yes I reviewed the patient's medical records. Screening: Per USPSTF and CDC recommendations, given the prevalence of disease in our region, it is our hospital?s policy to screen for HIV and viral Hepatitis for all patients aged 18 and over and those with ongoing risk factors. George Inquiry Pt receiving controlled substance: No George was queried for this patient: No Vital Signs: 03/16/25 18:27 Temperature 98.0 F Temperature Source Oral Pulse Rate [Left Brachial] 90 Respiratory Rate 18 Blood Pressure [Left Arm] 141/92 H Blood Pressure Mean [Left Arm] 108 02 Sat by Pulse Oximetry 99 Oxygen Delivery Method Room Air Orders (Tests/Meds): ORDERS Category Date Time Status XR tibia fibula LT 2V Stat Exams 03/16/25 18:32 Taken Medical Decision Narrative: 89-year-old female presents the emergency department with a left leg injury, differential diagnosis include but not limited to, left leg sprain/strain, left leg abrasion, tib-fib fracture, skin tear among others. I discussed this patient's case with the attending physician Will obtain x-ray of the left tibia-fibula region, and dressed the patient's wound with pressure dressing with Xeroform to stop bleeding. Patient has a 4 to 5 cm skin tear that would not be amicable to suturing here in the emergency department. Hemostasis achieved after pressure dressing with Surgicel, and of the wound, patient will need to follow-up with wound care, patient was given dressing and supplies if continued bleeding when the patient gets home from her skin tear. Patient was given strict ED return precautions. Patient and family voiced understanding and agreement Contreet plan/discharge plan. Patient was also recommended to utilize [id number] topical antibiotic cream as needed for wound care. Patient and family voiced understanding and agreed with current treatment plan/discharge plan. I along with the attending physician independently interpreted the patient's x-ray, no acute bony abnormality, no foreign body. Discussed this with the patient and at the bedside. Patient family voiced understanding. Critical Care Critical Care Time Critical Care Time: No
[2025-03-16 19:00] VITALS: BP 144/97; PULSE 79; O2SAT 99
[2025-03-16 19:15] VITALS: BP 153/90; PULSE 80; O2SAT 98
[2025-03-16 19:30] VITALS: BP 153/90; PULSE 77; PULSE 79; RESP 20; TEMP 36.6; O2SAT 98; O2SAT 99
[2025-03-16] MEDS: TET/DIPHTH/PERT-ADULT 0.5ML SYRINGE 0.5 ML IM (19:45)
== END 2025-03-16 20:00 | disposition home or self-care (01) ==
PROVIDERS: Emergency Provider Student in an Organized Health Care Education/Training Program; PCP Family Medicine
DX: S81.819A Laceration without foreign body, unspecified lower leg, initial encounter (principal)
CPT/HCPCS: 73590; 90471; 90715; 99283

== ENCOUNTER 2025-04-02 09:46 | Outpatient (RCR) | payer MEDICARE, SELFPAY | END 2025-04-02 23:59 | disposition home or self-care (01) | LOC: PT 09:46 | PROVIDERS: PCP Family Medicine; Visit Provider Nurse Practitioner | DX: L03.90 Cellulitis, unspecified (principal) | CPT/HCPCS: 97163 ==

== ENCOUNTER 2025-04-15 12:46 | Outpatient (RCR) | payer MEDICARE, SELFPAY | END 2025-04-15 23:59 | disposition home or self-care (01) | LOC: PT 12:46 | PROVIDERS: PCP Family Medicine; Visit Provider Nurse Practitioner | DX: L03.90 Cellulitis, unspecified (principal) | CPT/HCPCS: 97597 ==